=== PATIENT | male | born 1990 | race Hispanic/Latino ===

== ENCOUNTER 2018-03-23 21:13 | Emergency (ER) | payer SELFPAY ==
[~2018-03-23] VITALS: Ht 157.5 cm; Wt 87.5 kg
[2018-03-23] MEDS ORDERED: AZITHROMYCIN 250 MG TAB PO ONE (21:30)
[2018-03-23] MEDS ORDERED: CEFTRIAXONE SOD 1 GM VIAL IM ONE (21:30)
[2018-03-23] MEDS ORDERED: METRONIDAZOLE 500 MG TAB PO ONE (21:30)
[2018-03-23] MEDS ORDERED: CEFTRIAXONE SOD 250 MG VIAL ONE (21:49)
[2018-03-23 23:50] VITALS: BP 148/89
== END 2018-03-23 23:55 | disposition home or self-care (01) ==
LOC: ER 21:13
DX: N34.1 Nonspecific urethritis (principal); A60.01 Herpesviral infection of penis
CPT/HCPCS: 96372; 99282; J0696

== ENCOUNTER 2019-12-20 18:36 | Emergency (ER) | payer SELFPAY ==
[~2019-12-20] VITALS: Ht 157.5 cm; Wt 90.7 kg
--- OUTSIDE RECORDS SUMMARY | 2019-12-20 18:39 | XMS REPORT ---
Author Author Admin, Larry Bronx Organization Unknown Address Unknown Phone Unavailable PROBLEMS Condition Status Date Provider Notes Hemorrhoids, external active Sharan Lewis Anxiety active Valeriebrigette Casiano HIV exposure active Valerie Casiano Sore throat active Valerie Oh Body aches active Valerie Casiano Screening for diabetes mellitus active Sharan card Herpes labialis active Kamron Kat Screening for diabetes mellitus completed - 201 04/03/13 Sharan Lewis Herpes genitalis active Sergioasad Marquez history of, HSV 2 IgG antibody positive BMI 33.0-33.9 active Roger Alarconaniashley completed - Sharan Lewis Tinea pedis completed - Sharan Lewis Internal hemorrhoid active Matilde Mascorroabuikaycee Obesity active Matilde Harvey fe Screening visit for sexually trans dis active 0 Matilde Nevarez COUNSELING OTHER SEXUALLY TRANSMITTED DISEASES completed - Sharan Lewis ENCOUNTERS Date Type Provider Location Encounter Diagn osis - Ambulatory Encounter Janessa Lee [facility] Adult [facility] UNK - Ambulatory Encounter Sharan Lewis [facility] Adult Medicine UNK - Ambulatory Encounter Arian Cavazos [facility] UNK - Ambulatory Encounter Public Health Services Provider Arian Blake [facility] UNK - Ambulatory Encounter Valerie Fair [facility] Adult Medicine Body achesSore throatHIV exp osureAnxiety - Ambulatory Encounter Sharan Sullivan [facility] Adult Medicine Screening for diabetes mellitusHemorrhoi ds, external - Ambulatory Encounter Kolby Dudley [facility] Adult Medicine UNK - Ambulatory Encounter Lucy castillo MedAdherence Marie Diamond [facility] UNK - Ambulatory Encounter Melinda Dahl [facility] Adult Medicine UNK - [facility] - [facility] Encounter Sharan Lewis LinkLogharjit [facility] Adult Medicine UNK - Ambulatory Encounter Sharan Lewis [facility] Adult [facility] UNK - Ambulatory Encounter Sharan Singh [facility] Adult Medicine COUNSELING OTHER SEXUALLY TRANSMITTED DISEASESTinea pedisBalanitisScreening for diabetes mellitus - Ambulatory Encounter Naveen begum [facility] UNK - Ambulatory Encounter Kamron Kat [facility] UNK - Ambulatory Encounter Kamron Henriquez Roblero [facility] Herpes labialis - Ambulatory Encounter Kamron Kat [facility] UNK - Ambulatory Encounter Kamron solano [facility] UNK - Ambulatory Encounter Kamron solano [facility] UNK - Ambulatory Encounter Kamron solano [facility] UNK - Ambulatory Encounter Kamron solano [facility] UNK - Ambulatory Encounter Kamron Espinal [facility] UNK - Ambulatory Encounter Marie Belcher [facility] UNK - Ambulatory Encounter Marie caro [facility] UNK - Ambulatory Encounter Bessy Woods MedAdherence Desiree Hassan [facility] UNK - Ambulatory Encounter Sergio Alma Sergio Alma [facility] UNK - Ambulatory Encounter Roger Snow Sergio Alma Sergio Alma [facility] Screening for diabetes mellitus - Ambulatory Encounter Sergio Alma Sergio Alma [facility] UNK - Ambulatory Encounter Lucy castillo MedAdherence Jennifer Sims Sergio Alma Sergio Alma Dereck Belcher [facility] UNK - Ambulatory Encounter Lucy José Luis castillo MedAdherence Jennifer Short [facility] UNK - Ambulatory Encounter Sergio Alma Sergio Alma [facility] UNK - Ambulatory Encounter Sergio Alma Sergio Alma [facility] Herpes genitalis - Ambulatory Encounter Sergio Alma Sergio Alma [facility] UNK - Ambulatory Encounter Sergio Alma U amee Alma LinkLogic [facility] UNK - Ambulatory Encounter Sergio Alma Sergio Alma [facility] UNK - Ambulatory Encounter Sergio Alma Sergio Alma [facility] UNK - Ambulatory Encounter Sergio Alma Sergio Alma [facility] UNK - Ambulatory Encounter Roger Espinal [facility] Tinea pedisBalanitisBMI 33.0-33.9 - Ambulatory Encounter Matilde Dumont hristian Nnabuife Chukwuemejustin Scientologist Nnabuife [facility] UNK - Ambulatory Encounter Matilde Dumont hristian Nnabuife Óscarkwuemeka Scientologist Nnabuife [facility] UNK - Ambulatory Encounter Matilde Dumont hristian Nnabuife Óscarkwuemeka Scientologist Nnabuife [facility] UNK - Ambulatory Encounter Ginette Clayton Scientologist Nnabuife Óscarkwuemeka Scientologist Nnabuife [facility] Screening visit for sexually trans disOb esityInternal hemorrhoid - Ambulatory Encounter [facility] Desmello Negrete [facility] UNK - Ambulatory Encounter [facility] Provider Dorian Escoto [facility] UNK - Ambulatory Encounter Gordon jordan [facility] UNK - Ambulatory Encounter [facility] Provider Gordon Negrete [facility] COUNSELING OTH ER SEXUALLY TRANSMITTED DISEASES VITAL SIGNS Date Observation Value Provider oxygen saturation, oximetry 98 % Lea greg Fair " blood pressure, diastolic 89 mm[Hg] Chartiffanie Fair " blood pressure, systolic 137 mm[Hg] Chargreg Fair " respiratory rate E&M 18 /min Charese Per ry " pulse rate E&M 67 /min Charese Marv " temperature site oral John Proctorry " temperature E&M 98.1 [degF] Chargreg Marv " weight E&M 192.20 lbs. John Marv " weight in kilograms E&M 87.36 kg John Marv " method used to obtain blood pressure automatic John Marv " Blood Pressure Position 01 sitting Bharathi Fair " blood pressure, site #1 left arm John Fair " height E&M 65 [in_i] John Marv " height in centimeters E&M 165.10 cm Chartiffanie e Marv BP diastolic #1 84 mm[Hg] Sharan Lewis " BP systolic #1 146 mm[Hg] Sharan Gomezg " blood pressure, diastolic, second observation 68 mm[Hg] Sharan Lewis " blood pressure, systolic, second observation 115 mm[Hg] Sharan Lewis " oxygen saturation, oximetry 98 % Karlie a G Surugui " blood pressure, diastolic 68 mm[Hg] Sharan Lewis " blood pressure, systolic 115 mm[Hg] Sharan Lewis " pulse rate E&M 69 /min Janessa G Surugui " temperature E&M 98.3 [degF] Janessa G Surugui " weight E&M 191.25 lbs. Janessa G Surugui " weight in kilograms E&M 86.93 kg Janessa G Surugui " blood pressure, site #1 left arm Janessa G Surugui " Blood Pressure Position 01 sitting Janessa G Surugui " method used to obtain blood pressure automatic Janessa G Surugui " temperature site oral Janessa G Surugui " height E&M 65 [in_i] Jansesa G Surugui " height in centimeters E&M 165.10 cm Janessa Sullivan oxygen saturation, oximetry 99 % Triston lily Martinezs Marika " method used to obtain blood pressure automatic Francisco Matthewseras Marika " Blood Pressure Position 01 sitting Capri rdclemente MatthewsKaiser Marika " blood pressure, site #1 left arm Francisco Martinezs Marika " blood pressure, diastolic 80 mm[Hg] Leonar do Kaiser Marika " blood pressure, systolic 130 mm[Hg] Cesar o Kaiser Marika " pulse rate E&M 71 /min Francisco Contrer as Marika " temperature site oral Francisco Matthewse chad Marika " temperature E&M 98.1 [degF] Francisco Contrer as Marika " weight E&M 202.20 lbs. Francisco Contrer as Marika " weight in kilograms E&M 91.91 kg Francisco Kaiser Marika " height E&M 65 [in_i] Francisco Contrer as Marika " height in centimeters E&M 165.10 cm Leonar do Kaiser Marika oxygen saturation, oximetry 98 % Mike ia S Roblero " blood pressure, diastolic 76 mm[Hg] Indira S Roblero " blood pressure, systolic 132 mm[Hg] Indira S Roblero " respiratory rate E&M 18 /min Indira S Va ldez " pulse rate E&M 76 /min Indira S Roblero " temperature E&M 98.4 [degF] Indira S Roblero " temperature site oral Indira S Roblero " weight E&M 204.13 lbs. Indira S Roblero " weight in kilograms E&M 92.79 kg Indira S Roblero " height E&M 65 [in_i] Indira S Roblero " height in centimeters E&M 165.10 cm Indira S Roblero " blood pressure, site #1 left arm Indira S Roblero " Blood Pressure Position 01 sitting Nina a S Roblero " method used to obtain blood pressure automatic Indira S Roblero height E&M 65 [in_i] Kamron Kat " height in centimeters E&M 165.10 cm Maicol Kat oxygen saturation, oximetry 97 % Kavitha Espinal " method used to obtain blood pressure automatic Corazon Espinal " Blood Pressure Position 01 sitting Corazon Espinal " blood pressure, site #1 left arm Corazon Harpreet ramirez " blood pressure, diastolic 84 mm[Hg] Corazon Espinal " blood pressure, systolic 142 mm[Hg] Corazon rogers " respiratory rate E&M 17 /min Corazon Espinal " pulse rate E&M 70 /min Corazon Espinal " temperature site oral Corazon Espinal " temperature E&M 98.5 [degF] Corazon Epsinal " weight E&M 205 lbs. Corazon Espinal " weight in kilograms E&M 93.18 kg Corazon ramirez " height E&M 65 [in_i] Corazon Espinal " height in centimeters E&M 165.10 cm Corazon Espinal oxygen saturation, oximetry 98 % Epi Davidson " method used to obtain blood pressure automatic Michelle Davidson " Blood Pressure Position 01 sitting Kathrine Davidson " blood pressure, site #1 left arm Michelle J ack " blood pressure, diastolic 73 mm[Hg] Michelle Stuart " blood pressure, systolic 117 mm[Hg] Michelle Stuart " respiratory rate E&M 16 /min Michelle Stuart " pulse rate E&M 64 /min Michelle Stuart " temperature site oral Michelle Davidson " temperature E&M 97.9 [degF] Michelle Stuart " weight E&M 205 lbs. Michelle Davidson " weight in kilograms E&M 93.18 kg Michelle J ack " height E&M 65 [in_i] Michelle Davidson " height in centimeters E&M 165.10 cm Michellesarah Davidson oxygen saturation, oximetry 97 % Kavitha Espinal " method used to obtain blood pressure automatic Corazon Espinal " Blood Pressure Position 01 sitting Corazon Espinal " blood pressure, site #1 left arm Corazon ramirez " blood pressure, diastolic 87 mm[Hg] Corazon Espinal " blood pressure, systolic 137 mm[Hg] Corazon rogers " respiratory rate E&M 17 /min Corazon Espinal " pulse rate E&M 78 /min Corazon Espinal " temperature site oral Corazon Espinal " temperature E&M 98.7 [degF] Corazon Espinal " weight E&M 200.20 lbs. Corazon Espinal " weight in kilograms E&M 91 kg Corazon Harpreet ramirez " height E&M 65 [in_i] Corazon Espinal " height in centimeters E&M 165.10 cm Corazon Espinal oxygen saturation, oximetry 98 % Jess ukavin Yusuf " method used to obtain blood pressure automatic Rossana Yusuf " Blood Pressure Position 01 sitting Jaclashawn Yusuf " blood pressure, site #1 right arm Jacqueli ne Yusuf " blood pressure, diastolic 85 mm[Hg] Nikki line Yusuf " blood pressure, systolic 126 mm[Hg] Jacquel ine Yusuf " respiratory rate E&M 18 /min Rossana Yusuf " pulse rate E&M 99 /min Rossana River a " temperature site oral Rossana Hernandez ra " temperature E&M 98.4 [degF] Rossana River a " weight E&M 196 lbs. Rossana River a " weight in kilograms E&M 89.09 kg Jacqueli ne Yusuf " height E&M 65 [in_i] Rossana River a " height in centimeters E&M 165.10 cm Nikki line Yusuf Allergies No Known Allergy Information REASON FOR REFERRAL No Information Available RESULTS Date Observation Value Provider Reference Range Interpretati on Location HIV-CMIA (Chemiluminescent Microparticle Immuno Assay) Non Reactive LinkLogic Non Reactive " rapid plasma reagin antibody, serum Non Reactive [facility]Logic Non Reactive " hemoglobin A1C, blood, as % of total hemoglobin 5.5 % Li nkLogic 4.8-5.6 " Neisseria gonorrhoeae DNA probe Negative [facility] Negativ e " chlamydia DNA probe Negative [facility] Negative " alanine aminotransferase (SGPT), serum 62 1/L [facility] 0-44 High " aspartate aminotransferase (SGOT), serum 25 1/L [facility] 0-40 " alkaline phosphatase, serum 58 1/L [facility] 39-117 " bilirubin, serum, total 1.1 mg/dL [facility] 0.0-1.2 " albumin/globulin ratio, serum 2.2 [facility] 1.2-2.2 " globulin, serum 2.5 [facility]ic 1.5-4.5 " albumin, serum 5.4 g/dL [facility] 4.1-5.2 High " protein, total, serum 7.9 g/dL [facility] 6.0-8.5 " calcium, serum 9.9 mg/dL [facility] 8.7-10.2 " carbon dioxide, venous blood 25 mmol/L [facility]ic 20-29 " chloride, serum 101 mmol/L [facility]ic 96-106 " potassium, serum 4.0 mmol/L LinkLogic 3.5-5.2 " sodium, serum 142 mmol/L [facility] 134-144 " urea nitrogen/creatinine ratio, serum 14 LinkLogic 9 -20 " eGFR if 129 mL/min/((173/100).m2) LinkLogic >59 " Estimated Glomerular Filtration Rate (calc) 111 mL/min/((173/100).m2) LinkLogic >59 " creatinine, serum 0.94 mg/dL [facility] 0.76-1.27 " urea nitrogen, blood 13 mg/dL LinkLogic 6-20 " blood glucose, random 99 mg/dL LinkLogic 65-99 influenza B virus antigen negative John Fair " influenza virus A antigen negative [facility] Marv " Microbial identification kit, rapid strep method negative Tim Fair HIV rapid test results negative [facility]-CMIA (Chemiluminescent Microparticle Immuno Assay) Non Reactive LinkLogic Non Reactive " rapid plasma reagin antibody, serum Non Reactive LinkLogic Non Reactive " Neisseria gonorrhoeae DNA probe Negative LinkLogic Negativ e " chlamydia DNA probe Negative LinkLogic Negative hemoglobin A1C, blood, as % of total hemoglobin 5.9 % [facility] HIV-CMIA (Chemiluminescent Microparticle Immuno Assay) Non Reactive LinkLogic Non Reactive " rapid plasma reagin antibody, serum Non Reactive LinkLogic Non Reactive " Neisseria gonorrhoeae DNA probe Negative [facility]Logic Negativ e " chlamydia DNA probe Negative LinkLogic Negative " HERPES SIMPLEX VIRUS TYPE 1 AB.IGG (PT; SER; QN; ) <0. 91 index LinkLogic 0.00-0.90 rapid plasma reagin antibody, serum Non Reactive LinkL ogic Non Reactive HIV rapid test results negative Gordon Caden HISTORY OF IMMUNIZATIONS No Information Available HISTORY OF MEDICATION USE Medication Instructions Dates Provider Comments PRAMOSONE 1-1 % EXTERNAL CREAM Apply to rectal area 3 times daily for 7-14 days. Sharan Lewis ACYCLOVIR 400 MG ORAL TABLET 1 tablet by mouth three t imes a day for 10 days as needed for outbreak Kamron North ACYCLOVIR 400 MG ORAL TABLET 1 tablet by mouth three t imes a day for 10 days as needed for outbreak - Kamron Kat TERBINAFINE HCL 250 MG ORAL TABLET one tablet By Mouth daily for 2 weeks - Sergio Alma ACYCLOVIR 400 MG ORAL TABLET 1 tablet by mouth three times a day for 7 days - Sergio Alma ACYCLOVIR 400 MG ORAL TABLET 1 tablet by mouth three times a day for 7 days - Sergio Marquez DIBUCAINE 1 % RECTAL OINTMENT apply at night time daily - Sharan Lewis TERBINAFINE HCL 250 MG ORAL TABLET one tablet By Mouth daily for 2 weeks - Sergio Marquez CLOTRIMAZOLE 1 % EXTERNAL CREAM apply Twice a Day to affecte d areas for 7 days - Sergioasad Marquez SOCIAL HISTORY Date Observation Value Provider family support with undetectable HIV Mando Casiano " drug use, illicit Never Charese Marv " alcohol use Never Charese Marv " social history E&M . with u ndetectable HIV Not homeless. 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 Highest education level: 9th-12th grade. Sex at : Male. Sexual orientation: Heterosexual. Gender identity: Male. Gender of partner(s): Female. Age of first sexual intercourse: 17. Sexually Active: Yes. His is HIV+ Valerie Casiano " social history reviewed E&M reviewed today Lea greg Marv " sexual orientation Heterosexual Charese Marv " assessment of health literacy ([facility] 2014 [place], 3C10) Adequate Charese Marv " passive cigarette smoke exposure No Charese Marv " smoking status former smoker Charese Marv drug use, illicit Never Janessa G Surugu i " alcohol use Never Janessa Sullivan " social history E&M . Not homeless. 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 Highest education level: 9th-12th grade. Sex at : Male. Sexual orientation: Heterosexual. Gender identity: Male. Gender of partner(s): Female. Age of first sexual intercourse: 17. Sexually Active: Yes. Janessa Sullivan " social history reviewed E&M reviewed today Karlie Sullivan " assessment of health literacy ([facility], 3C10) Adequate Janessa Sullivan " sexual orientation Heterosexual Janessa Hewitt ui " passive cigarette smoke exposure No Janessa Sullivan " smoking status former smoker Janessa Sullivan " Exercise Program Referral T Janessa Sullivan " Weight Management Counseling Provided T Janessa Sullivan " Nutrition intervention T Janessa Henriquez urugulambert time of call 07/22/2019 1:21 PM Jeremy Diamond social history E&M . Not homeless. 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 Highest education level: 9th-12th grade. Sex at : Male. Sexual orientation: Heterosexual. Gender identity: Male. Gender of partner(s): Female. Age of first sexual intercourse: 17. Sexually Active: Yes. Francisco Kaiser Marika " Occupation #1 land scaping Francisco Contrer as Marika " patient considered to be homeless No Francisco Kaiser Marika " social history reviewed E&M reviewed today Triston ardo Kaiser Marika " drug use, illicit Never Francisco Contr eras Marika " alcohol use Never Francisco Contrer as Marika " sexual orientation Heterosexual Francisco Cont reras Marika " assessment of health literacy [facility]) Adequate Francisco Kaiser Marika " passive cigarette smoke exposure No Francisco Kaiser Marika " smoking status former smoker Francisco Contrer as Marika " Exercise Program Referral T Leonpoonam do Kaiser Marika " Weight Management Counseling Provided T Francisco Kaiser Marika " Nutrition intervention T Francisco Kaiser Marika drug use, illicit Never Indira S Valde z " alcohol use Never Indira S Roblero " social history reviewed E&M reviewed today Mike ia S Roblero " sexual orientation Heterosexual Indira S Vald ez " assessment of health literacy ([facility], 3C10) Adequate Indira S Roblero " passive cigarette smoke exposure No Indira S Roblero " smoking status former smoker Indira S Roblero drug use, illicit Never Corazon Espinal " alcohol use Never Corazon Espinal " social history reviewed E&M reviewed today Kavitha garcia Teddy " sexual orientation Heterosexual Corazon Espinal " assessment of health literacy ([facility], 3C10) Adequate Corazon Espinal " passive cigarette smoke exposure No Corazon Espinal " smoking status former smoker Corazon Espinal " Exercise Program Referral T Corazon Teddy " Weight Management Counseling Provided T Corazon Espinal " Nutrition intervention T Corazon Per ez time of call 12/21/2018 12:34 PM Kamilla Belcher time of call 12/17/2018 3:11 PM Moncho jordan drug use, illicit Never Michelle Stuart " alcohol use Never Michelle Stuart " social history reviewed E&M reviewed today Epi Davidson " sexual orientation Heterosexual Michelle Stuart " assessment of health literacy ([facility], 3C10) Adequate Michelle Stuart " passive cigarette smoke exposure No Michelle Stuart " smoking status former smoker Michelle Stuart " Exercise Program Referral T Michelle Stuart " Weight Management Counseling Provided T Michelle Stuart " Nutrition intervention T Michelle Ja gretchen time of call 08/02/2018 12:31 PM Dereck henriquez drug use, illicit Never Corazon Espinal " alcohol use Never Corazon Espinal " social history reviewed E&M reviewed today Kavitha garcia Teddy " sexual orientation Heterosexual Corazon Espinal " assessment of health literacy ([facility]10) Adequate Corazon Espinal " passive cigarette smoke exposure No Corazon Espinal " smoking status former smoker Corazon Espinal " Exercise Program Referral T Corazon Teddy " Weight Management Counseling Provided T Corazon Teddy " Nutrition intervention T Corazon Per ez Exercise Program Referral T Michelle Pattonuikaycee " Weight Management Counseling Provided T Matilde Mascorroabuife " Nutrition intervention T Taylor Kim Nnabuife " drug use, illicit Never Rossana grullon " alcohol use Never Rossana River a " social history reviewed E&M reviewed today Jess Yusuf " assessment of health literacy ([facility] [address] [place], 3C10) Adequate Rossana Yusuf " passive cigarette smoke exposure No Rossana Rogersa " smoking status former smoker Rossana Rogers a HIV behavioural goal 1 Condoms and Prep. Tree Negrete " intravenous drug use (IVDU) with needle sharing, hx of No Gordon Negrete " Site - PrEP on Sexual Risk Prophylaxis 1198 - LM C Gordon Negrete " Funding Source - PrEP on Sexual Risk Prophylaxis COH Gordon Negrete " high risk sexual behaviors No Sudeep Negrete " Have you ever received or given money for drugs or sex? No Gordon Negrete " sex at Male Gordon moreno " sexual orientation Heterosexual Gordon diallo " Gender that patient is attracted to Women Gordon Negrete " Gender of previous sexual partner(s) Women Gordon Negrete " Gender of current sexual partner(s) Women Gordon Negrete FUNCTIONAL STATUS No Information Available MENTAL STATUS Date Observation Value Provider assessment of judgment and insight E&M intact Valerie Casiano " mental status examination: orientation E &M oriented to time, place, and person Valerie Casiano " assessment of mood and affect E&M no depression, anxiety, or agitation Valerie Casiano " Generalized Anxiety Disorder Questionnaire - Que stion 2 1 John Fair " Generalized Anxiety Disorder Questionnaire - Que stion 1 1 John Fair Generalized Anxiety Disorder Questionnaire - Que stion 2 0 Francisco Kaiser Marika " Generalized Anxiety Disorder Questionnaire - Que stion 1 0 Francisco Kaiser Marika assessment of judgment and insight E&M intact Kamron Kat " mental status examination: orientation E &M oriented to time, place, and person Kamron Kat " assessment of mood and affect E&M no depression, anxiety, or agitation Kamron Kat " Generalized Anxiety Disorder Questionnaire - Que stion 2 0 Indira S Osbaldo " Generalized Anxiety Disorder Questionnaire - Que stion 1 0 Indira S Roblero assessment of judgment and insight E&M intact Kamron Kat " mental status examination: orientation E &M oriented to time, place, and person Kamron Kat " assessment of mood and affect E&M no depression, anxiety, or agitation Kamron Kat Generalized Anxiety Disorder Questionnaire - Que stion 2 0 Corazon Espinal " Generalized Anxiety Disorder Questionnaire - Que stion 1 0 Corazon Espinal assessment of judgment and insight E&M intact Sergio Alma " mental status examination: orientation E &M oriented to time, place, and person Sergio Alma " assessment of mood and affect E&M no depression, anxiety, or agitation Sergio Alma " Generalized Anxiety Disorder Questionnaire - Que stion 2 0 Michelle Davidson " Generalized Anxiety Disorder Questionnaire - Que stion 1 0 Michelle Davidson assessment of judgment and insight E&M intact Sergio Alma " mental status examination: orientation E &M oriented to time, place, and person Sergio Alma " assessment of mood and affect E&M no depression, anxiety, or agitation Sergio Alma " Generalized Anxiety Disorder Questionnaire - Que stion 2 0 Corazon Espinal " Generalized Anxiety Disorder Questionnaire - Que stion 1 0 Corazon Espinal assessment of judgment and insight E&M intact Ch[place]wu[place] Scientologist Nnabuife " mental status examination: orientation E &M oriented to time, place, and person Ch[place]wuem[place]a Scientologist Nnabuife " assessment of mood and affect E&M no depression, anxiety, or agitation Chukwuemeka Scientologist Nnabuife " Generalized Anxiety Disorder Questionnaire - Que stion 2 0 Rossana Yusuf " Generalized Anxiety Disorder Questionnaire - Que stion 1 0 Rossana Yusuf MEDICAL EQUIPMENT No Information Available FAMILY HISTORY No Information Available INSURANCE PROVIDERS Payer name Policy type / Coverage type Covered part y ID Sliding Fee - Cat 1 [employer] insurance [employer] [id number] ADVANCE DIRECTIVES No Information Available TREATMENT PLAN Date Name Hemoglobin A1c Comp. Metabolic Panel (14) RPR, Rfx Qn RPR/Confirm TP Chlamydia/GC Amplification ( Urine) HIV 1/2 ANTIGEN/ANTIBODY, FO URTH GENERATION W/RFL Chlamydia/GC Amplification ( Urine) RPR, Rfx Qn RPR/Confirm TP HIV 1/2 ANTIGEN/ANTIBODY, FO URTH GENERATION W/RFL HSV 1 and 2-Specific Ab, IgG with Reflex Chlamydia/GC Amplification RPR, Rfx Qn RPR/Confirm TP HIV 1/2 ANTIGEN/ANTIBODY, FO URTH GENERATION W/RFL RPR, Rfx Qn RPR/Confirm TP Est Patient Exp Problem - 99 213 Health Education/Supportive Counseling Est Patient Exp Problem - 99 213 Rapid Flu - In House Rapid Strep - In House Handling of specimen for tra nsfer Venipuncture Est Patient Problem Focus - 41784 Handling of specimen for tra nsfer Venipuncture Ofc Vst, Est Level III Ofc Vst, Est Level III HEMOGLOBIN A1C - In House Est Patient Exp Problem - 99 213 Est Patient Exp Problem - 99 213 New Patient Exp Problem - 99 202 Health Education/Supportive Counseling Health Education/Supportive Counseling HISTORY OF PROCEDURES Procedure Date Procedure Name Provider Procedure Notes Status Health Education/Supportive Counseling P ublic Health Services Provider completed Rapid Flu - In House Valerie clemens kvng Rapid Strep - In House Valerie navarro leted Venipuncture Sharan Lewis completed Venipuncture Sharan Lewis completed HEMOGLOBIN A1C - In House Roger Snow completed Health Education/Supportive Counseling P ublic Health Services Provider completed Health Education/Supportive Counseling P ublic Health Services Provider completed GOALS No Information Available HEALTH CONCERNS No Information Available
--- OUTSIDE RECORDS SUMMARY | 2019-12-20 18:39 | XMS REPORT ---
Author Author Admin, Larry Colfax Organization Unknown Address Unknown Phone Unavailable PROBLEMS Condition Status Date Provider Notes Herpes labialis active Kamron Kat Screening for diabetes mellitus completed - 201 04/03/13 Sharan Lewis Herpes genitalis active Sergio Alma history of, HSV 2 IgG antibody positive BMI 33.0-33.9 active Roger Whatley completed - Sharan Lewis Tinea pedis completed - Sharan Lewis Internal hemorrhoid active Matilde Kim Nnabuife Obesity active Matilde Kim Nnabui fe Screening visit for sexually trans dis active 0 Matilde Kim Nnabuikaycee COUNSELING OTHER SEXUALLY TRANSMITTED DISEASES completed - Sharan Lewis ENCOUNTERS Date Type Provider Location Encounter Diagn osis - Ambulatory Encounter Kolby Dudley [facility] Adult Medicine UNK - Ambulatory Encounter Lucy castillo MedAdherence Marie Diamond [facility] Services Contact Center UNK - Ambulatory Encounter Melinda Dahl [facility] [place] - Ambulatory Encounter Sharan Hairston [facility] Adult [facility] UNK - [facility] - [facility]ulatory Encounter Sharan Lewis [facility] Adult Medicine UNK - Ambulatory Encounter Sharan Hairston [facility] Adult Medicine COUNSELING OTHER SEXUALLY TRANSMITTED DISEASESTinea pedisBalanitisScreening for diabetes mellitus - Ambulatory Encounter Naveen Henriquez [facility] Practice UNK - Ambulatory Encounter Kamron Kat [facility] Practice UNK - Ambulatory Encounter Kamron Rbolero [facility] Herpes labialis - Ambulatory Encounter Kamron [place] [facility] UNK - Ambulatory Encounter Kamron solano [place] [facility] UNK - Ambulatory Encounter Kamron solano [place] [facility] Practice UNK - Ambulatory Encounter Kamron solano [place] [facility] UNK - Ambulatory Encounter Kamron Blankenshipiott [facility] UNK - Ambulatory Encounter Kamron Espinal [facility] UNK - Ambulatory Encounter Marie Belcher [facility] Services Contact Center UNK - Ambulatory Encounter Marie caro [facility] Services Contact Center UNK - Ambulatory Encounter Bessy Hassan [facility] Services Contact Center UNK - Ambulatory Encounter Sergio Alma Sergio Alma [facility] Practice UNK - Ambulatory Encounter Roger Snow Sergio Alma Sergio Alma Michelle Malone [facility] Screening for diabetes mellitus - Ambulatory Encounter Sergio Alma Sergio Alma [facility] UNK - Ambulatory Encounter Lucy Ordonez ips MedAdherence Jennifer Sims Sergio Alma Sergio Alma Dereck Belcher [facility] UNK - Ambulatory Encounter Lucy Ordonez ips MedAdherence Jennifer Short [facility] Practice UNK - Ambulatory Encounter Sergio Alma Sergio Alma [facility] Practice UNK - Ambulatory Encounter Sergio Alma Sergio Alma [facility] Practice Herpes genitalis - Ambulatory Encounter Sergio Alma Sergio Alma [facility] Practice UNK - Ambulatory Encounter Sergio Alma [facility]ulatory Encounter Sergio Alma Sergio Alma [facility] Practice UNK - Ambulatory Encounter Sergio Alma Sergio Alma [facility] Practice UNK - Ambulatory Encounter Sergio Alma Sergio Alma [facility] Practice UNK - Ambulatory Encounter Roger Espinal Sergio Alma Sergio Alma [facility] Practice Tinea pedisBalanitisBMI 33.0-33.9 - Ambulatory Encounter [facility] - [facility] Encounter Matilde Mascorroabuife [facility] UNK - Ambulatory Encounter Matilde Nevarez [facility] UNK - Ambulatory Encounter Ginette Douglasfaby ElaineRossanamigue Yusuf [place] Julio Nevarez [facility] Screening visit for sexually trans disOb esityInternal hemorrhoid - Ambulatory Encounter [facility] Desktop LinkLogic Gordon Negrete [facility] UNK - Ambulatory Encounter [facility] Services Provider Dorian Escoto [facility] UNK - Ambulatory Encounter Gordon jordan [facility] UNK - Ambulatory Encounter Public Health Services Provider Gordon Negrete [facility] COUNSELING OTH ER SEXUALLY TRANSMITTED DISEASES VITAL SIGNS Date Observation Value Provider oxygen saturation, oximetry 99 % Triston poonamdo Kaiser Marika " method used to obtain blood pressure automatic Francisco Kaiser Luna " Blood Pressure Position 01 sitting Capri rdo Kaiser Marika " blood pressure, site #1 left arm Francisco Kaiser Marika " blood pressure, diastolic 80 mm[Hg] Leonar do Kaiser Marika " blood pressure, systolic 130 mm[Hg] Cesar o Kaiser Marika " pulse rate E&M 71 /min Francisco Contrer as Marika " temperature site oral Francisco Contre chad Marika " temperature E&M 98.1 [degF] Francisco Contrer as Marika " weight E&M 202.20 lbs. Francisco Contrer as Marika " weight in kilograms E&M 91.91 kg Francisco Kaiser Marika " height E&M 65 [in_i] Francisco Contrer as Marika " height in centimeters E&M 165.10 cm Leonar do Kaiser Marika oxygen saturation, oximetry 98 % Mike Roblero " blood pressure, diastolic 76 mm[Hg] Indira S Roblero " blood pressure, systolic 132 mm[Hg] Indira S Roblero " respiratory rate E&M 18 /min Indira S Dionna spence " pulse rate E&M 76 /min Indira [...] arm Corazon ramirez " blood pressure, diastolic 84 mm[Hg] Corazon Espinal " blood pressure, systolic 142 mm[Hg] Corazon rogers " respiratory rate E&M 17 /min Corazon Espinal " pulse rate E&M 70 /min Corazon Espinal " temperature site oral Corazon Espinal " temperature E&M 98.5 [degF] Corazon Espinal " weight E&M 205 lbs. Corazon Espinal [...] blood pressure, site #1 left arm Michelle ortiz " blood pressure, diastolic 73 mm[Hg] Michelle Davidson " blood pressure, systolic 117 mm[Hg] Michelle Davidson " respiratory rate E&M 16 /min Michelle Jack " pulse rate E&M 64 /min Michelle Davidson " temperature site oral Michelle Davidson " temperature E&M 97.9 [degF] Michelle Davidson " weight E&M 205 lbs. Michelle Davidson " weight in kilograms E&M 93.18 kg Michelle Peterson ack " height E&M 65 [in_i] Michelle Davidson " height in centimeters E&M 165.10 cm Michelle Davidson oxygen saturation, oximetry 97 % Kavitha [...] Espinal " temperature E&M 98.7 [degF] Corazon Teddy " weight E&M 200.20 lbs. Corazon Teddy " weight in kilograms E&M 91 kg Corazon Harpreet brisenoz " height E&M 65 [in_i] Corazon Teddy " height in centimeters E&M 165.10 cm Corazon Espinal oxygen saturation, oximetry 98 % Jess ueline Yusuf " method used to obtain blood pressure automatic Rossana Yusuf " Blood Pressure Position 01 sitting Jacqu kavin Yusuf " blood pressure, site #1 right arm Jacqueli ne Yusuf " blood pressure, diastolic 85 mm[Hg] Nikki line Yusuf " blood pressure, systolic 126 mm[Hg] Jacquel ine Yusuf " respiratory rate E&M 18 /min Rossana Yusuf " pulse rate E&M 99 /min Rossana River a " temperature site oral Rossana Rive ra " temperature E&M 98.4 [degF] Rossana [...] as % of total hemoglobin 5.9 % Sergio Marquez HIV-CMIA (Chemiluminescent Microparticle Immuno Assay) Non Reactive [...] Reactive HIV rapid test results negative Gordon Negrete HISTORY OF IMMUNIZATIONS No Information Available HISTORY OF MEDICATION USE Medication Instructions Dates Provider Comments ACYCLOVIR 400 MG ORAL TABLET 1 tablet by mouth three t imes a day for 10 days as needed for outbreak Kamron Kat ACYCLOVIR 400 MG ORAL TABLET 1 tablet by mouth three t imes a day for 10 days as needed for outbreak - Kamron Kat TERBINAFINE HCL 250 MG ORAL TABLET one tablet By Mouth daily for 2 weeks - Sergio Marquez ACYCLOVIR 400 MG ORAL TABLET 1 tablet by mouth three times a day for 7 days - Sergio Marquez ACYCLOVIR 400 MG ORAL TABLET 1 tablet by mouth three times a day for 7 days - Sergio Marquez DIBUCAINE 1 % RECTAL OINTMENT apply at night time daily Sergio Marquez TERBINAFINE HCL 250 MG ORAL TABLET one tablet By Mouth daily for 2 weeks - Sergio Marquez CLOTRIMAZOLE 1 % EXTERNAL CREAM apply Twice a Day to affecte d areas for 7 days - Sergio Marquez SOCIAL HISTORY Date Observation Value Provider time of call 07/22/2019 1:21 PM Jeremy [...] social history reviewed E&M reviewed today Triston poonamdo Kaiser Marika " drug use, illicit Never Francisco Contr eras Marika " alcohol use Never Francisco Contrer as Marika " sexual orientation Heterosexual Francisco Cont reras Marika " assessment of health literacy ([facility], 3C10) Adequate Francisco Kaiser Marika " passive cigarette smoke exposure No Francisco Kaiser Marika " smoking status former smoker Francisco Contrer as Marika " Exercise Program Referral T Leonar do Kaiser Marika " Weight Management Counseling Provided T Francisco Kaiser Marika " Nutrition intervention T Francisco Kaiser Marika drug use, illicit Never Indira S Valde z " alcohol use Never Indira S Roblero " social history reviewed E&M reviewed today Mike ia S Roblero " sexual orientation Heterosexual Indira S Vald ez " assessment of health literacy ([facility], 3C10) Adequate Indira S Roblero " passive cigarette smoke exposure No Indira S Roblero " smoking status former smoker Indira S Roblero drug use, illicit Never Corazon Espinal " alcohol use Never Corazon Espinal " social history reviewed E&M reviewed today Kavitha Espinal " sexual orientation Heterosexual Corazon Espinal " assessment of health literacy ([facility], 3C10) Adequate Corazon Espinal " passive cigarette smoke exposure No Corazon Teddy " smoking status former smoker Corazon Espinal " Exercise Program Referral T Corazon Espinal " Weight Management Counseling Provided T Corazon Espinal " Nutrition intervention T Corazon moreno time of call 12/21/2018 12:34 PM Kamilla Belcher time of call 12/17/2018 3:11 PM Moncho jordan drug use, illicit Never Michelle Stuart " alcohol use Never Michelle Stuart " social history reviewed E&M reviewed today Epi Davidson " sexual orientation Heterosexual Michelle Davidson " assessment of health literacy ([facility], 3C10) Adequate Michelle Stuart " passive cigarette smoke exposure No Michelle Stuart " smoking status former smoker Michelle Davidson " Exercise Program Referral T Michelle Stuart " Weight Management Counseling Provided T Michelle Stuart " Nutrition intervention T Michelle Ja ck time of call 08/02/2018 12:31 PM Dereck henriquez drug use, illicit Never Corazon Teddy " alcohol use Never Corazon Teddy " social history reviewed E&M reviewed today Kavitha Espinal " sexual orientation Heterosexual Corazon Espinal " assessment of health literacy ([facility], 3C10) Adequate Corazon Teddy " passive cigarette smoke exposure No Corazon Teddy " smoking status former smoker Corazon Teddy " Exercise Program Referral T Corazon Teddy " Weight Management Counseling Provided T Corazon Teddy " Nutrition intervention T Corazon Per ez Exercise Program Referral T Michelle roman Confucianism Nnabuife " Weight Management Counseling Provided T [place] Confucianism Nnabuife " Nutrition intervention T [place] Confucianism Nnabuife " drug use, illicit Never Rossana Kai era " alcohol use Never Rossana River a " social history reviewed E&M reviewed today Jess ueline Yusuf " assessment of health literacy ([facility], 3C10) Adequate Rossana Yusuf " passive cigarette smoke exposure No Rossana Yusuf " smoking status former smoker Rossana River a HIV behavioural goal 1 Condoms and [...] " Gender of previous sexual partner(s) Women Gordondo Negrete " Gender of current sexual partner(s) Women Gordon Negrete FUNCTIONAL STATUS No Information Available MENTAL STATUS Date Observation Value Provider Generalized Anxiety Disorder Questionnaire - Que stion 2 0 Francisco Kaiser Marika " Generalized Anxiety Disorder Questionnaire - Que stion 1 0 Franciscolily Martinezs Marika assessment of judgment and insight E&M intact Kamron Kat " mental status examination: orientation E &M oriented to time, place, and person Kamron Kat " assessment of mood and affect E&M no depression, anxiety, or agitation Kamron Kat " Generalized Anxiety Disorder Questionnaire - Que stion 2 0 Indira Roblero " Generalized Anxiety Disorder Questionnaire - Que stion 1 0 Indira Roblero assessment of judgment and insight E&M [...] of judgment and insight E&M intact [place] Confucianism Nnabuife " mental status examination: orientation E &M oriented to time, place, and person [place] Confucianism Nnabuife " assessment of mood and affect E&M no depression, anxiety, or agitation Óscareveryaelmukund Julio Nevarez " Generalized Anxiety Disorder Questionnaire - Que stion 2 0 Rossana Yusuf " Generalized Anxiety Disorder Questionnaire - Que stion 1 0 Rossana Yusuf MEDICAL EQUIPMENT No Information Available FAMILY HISTORY No Information Available INSURANCE PROVIDERS Payer name Policy type / Coverage type Covered part y ID Sliding Fee - Cat 1 [employer] insurance [employer] [id number] ADVANCE DIRECTIVES No Information Available TREATMENT PLAN Date Name Chlamydia/GC Amplification ( Urine) RPR, Rfx Qn RPR/Confirm TP HIV 1/2 ANTIGEN/ANTIBODY, FO URTH GENERATION W/RFL HSV 1 and 2-Specific Ab, IgG with Reflex Chlamydia/GC Amplification RPR, Rfx Qn RPR/Confirm TP HIV 1/2 ANTIGEN/ANTIBODY, FO URTH GENERATION W/RFL RPR, Rfx Qn RPR/Confirm TP Est Patient Problem Focus - 60266 Handling of specimen for tra nsfer Venipuncture Ofc Vst, Est Level III Ofc Vst, Est Level III HEMOGLOBIN A1C - In House Est Patient Exp Problem - 99 213 Est Patient Exp Problem - 99 213 New Patient Exp Problem - 99 202 Health Education/Supportive Counseling Health Education/Supportive Counseling HISTORY OF PROCEDURES Procedure Date Procedure Name Provider Procedure Notes Status Venipuncture Sharan Lewis completed HEMOGLOBIN A1C - In House Roger Snow completed Health Education/Supportive Counseling P ublic Health Services Provider completed Health Education/Supportive Counseling P ublic Health Services Provider completed GOALS No Information Available HEALTH CONCERNS No Information Available
--- OUTSIDE RECORDS SUMMARY | 2019-12-20 18:39 | XMS REPORT ---
Author Author Yvette, Larry Duplicate Organization Unknown Address Unknown Phone Unavailable PROBLEMS Condition Status Date Provider Notes Herpes labialis active Kamron Kat Screening for diabetes mellitus completed - 201 04/03/13 Sharan Lewis Herpes genitalis active Sergioasad Vallesmi history of, HSV 2 IgG antibody positive [...] Location Encounter Diagn osis - Ambulatory Encounter Lucy castillo MedAdherolena Diamond [facility] Contact Center UNK - Ambulatory Encounter Melinda Dahl [facility] [place] [facility] [place] - Ambulatory Encounter Sharan Hairston [facility] UNK - Ambulatory [facility] UN[facility] - Ambulatory Encounter Sharan Lewis [facility] Adult Medicine UNK - Ambulatory Encounter Sharan Kaiser [facility] Adult Medicine COUNSELING OTHER SEXUALLY TRANSMITTED DISEASESTinea pedisBalanitisScreening for diabetes mellitus - Ambulatory Encounter Naveen Henriquez [facility] UNK - Ambulatory Encounter Kamron Kat [facility] UNK - Ambulatory Encounter Kamron Mckeontia Henriquez Roblero [facility] Herpes labialis - Ambulatory Encounter Kamron [place] [facility] UNK - Ambulatory Encounter Kamron solano [facility] UNK - Ambulatory Encounter Kamron Blankenshipiott [facility] UNK - Ambulatory Encounter Kamron [place] [facility] UNK - Ambulatory Encounter Kamron solano [facility] UNK - Ambulatory Encounter Kamron Espinal [facility] UNK - Ambulatory Encounter Marie Belcher [facility] Contact Center UNK - Ambulatory Encounter Marie caro [facility] Contact Center UNK - Ambulatory Encounter Bessy Hassan [facility] Contact Center UNK - Ambulatory Encounter Sergio Alma Sergio Alma [facility] UNK - Ambulatory Encounter Roger Snow Sergio Alma Sergio Almaanirudh Solisendez [facility] Screening for diabetes mellitus - Ambulatory Encounter Sergio Alma Sergio Alma [facility] UNK - Ambulatory Encounter Lucy castillo MedAdherolena Sims Sergio Alma Sergio Alma Dereck Yeager Kamillajose Tellez Belcher [facility] UNK - Ambulatory Encounter Lucy Ordonez ips MedAdherence Jennifer Sims [facility] UNK - Ambulatory Encounter Sergio Alma Sergio Alma [facility] UNK - Ambulatory Encounter Sergio Alma Sergio Alma [facility] Herpes genitalis - Ambulatory Encounter Sergio Alma Sergio Alma [facility] UNK - Ambulatory Encounter Sergio Alma U amee Alma LinkLogic [facility] UNK - Ambulatory Encounter Sergio Alma Sergio Alma [facility] UNK - Ambulatory Encounter Sergio Alma Segrio Alma [facility] UNK - Ambulatory Encounter Sergio Alma Sergio Alma [facility] UNK - Ambulatory Encounter Roger Espinal Sergio Alma Sergio Alma [facility] Tinea pedKauranitisBMI 33.0-33.9 - Ambulatory Encounter Matilde Dumont hrfranckian [place] Matilde Abarcaian N[place] [facility] UNK - Ambulatory Encounter Matilde Dumont hrjeannette Mascorroabuikaycee Abarcaian [place] [facility] UNK - Ambulatory Encounter Matilde Dumont kg Hugheswmukund Nevarez [facility] UNK - Ambulatory Encounter Ginette Douglasfaby ElaineRossanabird [facility] Screening visit for sexually trans disOb esityInternal hemorrhoid - Ambulatory Encounter [facility] Desktop LinkLogic Gordon Negrete [facility] UNK - Ambulatory Encounter [facility] Provider Dorian Escoto [facility] UNK - Ambulatory Encounter Gordon jordan [facility] UNK - Ambulatory Encounter [facility] Provider Gordon Negrete [facility] COUNSELING OTH ER SEXUALLY TRANSMITTED DISEASES VITAL SIGNS No Information Available Allergies No Known Allergy Information REASON FOR [...] % of total hemoglobin 5.9 % Sergio [facility] HIV-CMIA (Chemiluminescent Microparticle Immuno Assay) Non Reactive [...] reras Marika " assessment of health literacy ([facility] [address], 3C10) Adequate Francisco Kaiser Marika " passive cigarette smoke exposure No Francisco Kaiser Marika " smoking status former smoker Francisco Contrer as Marika " Exercise Program Referral Gianfranco George do Kaiser Marika " Weight Management Counseling Provided T Francisco Kaiser Marika " Nutrition intervention T Francisco Kaiser Marika drug use, illicit Never Indira S Valde z " alcohol use Never Indira S Roblero " social history reviewed E&M reviewed today Mike ia S Roblero " sexual orientation Heterosexual Indira S Vald ez " assessment of health literacy ([facility] [address], 3C10) Adequate Indira S Roblero " passive cigarette smoke exposure No Indira S Roblero " smoking status former smoker Indira S Roblero drug use, illicit Never Corazon Espinal " alcohol use Never Corazon Espinal " social history reviewed E&M reviewed today Kavitha Espinal " sexual orientation Heterosexual Corazon Teddy " assessment of health literacy ([facility] 2013 [address], 3C10) Adequate Corazon Espinal " passive cigarette smoke exposure No Corazon Espinal " smoking status former smoker Corazon Espinal " Exercise Program Referral T Corazon Espinal " Weight Management Counseling Provided T Corazon Espinal " Nutrition intervention T Corazon Proctor ez time of call 12/21/2018 12:34 PM Kamilla Belcher time of call 12/17/2018 3:11 PM Monchoemily Coronadoamalia jordan drug use, illicit Never Michelle Stuart " alcohol use Never Michelle Stuart " social history reviewed E&M reviewed today Epi Davidson " sexual orientation Heterosexual Michelle Stuart " assessment of health literacy ([facility] [address], 3C10) Adequate Michelle Stuart " passive cigarette [...] Corazon Espinal " assessment of health literacy ([facility] 2013 [address], 3C10) Adequate Corazon Espinal " passive cigarette smoke exposure No Corazon Espinal " smoking status former smoker Corazon Teddy " Exercise Program Referral T Corazon Espinal " Weight Management Counseling Provided T Corazon Espinal " Nutrition intervention T Corazon Per ez Exercise Program Referral T Michelle Nevarez " Weight Management Counseling Provided T Matilde Nevarez " Nutrition intervention T Taylor Nevarez " drug use, illicit Never Rossana grullon " alcohol use Never Rossana Rogers a " social history reviewed E&M reviewed today Jessalicia Yusuf " assessment of health literacy ([facility] 3C10) Adequate Rossanamigue Rogersa " passive cigarette smoke exposure No Rossana [...] Questionnaire - Que stion 2 0 Francisco Hairston " Generalized Anxiety Disorder Questionnaire - Que stion 1 0 Francisco Grigsbya assessment of judgment and insight E&M intact Kamron Kat " mental status examination: orientation E &M oriented to time, place, and person Kamron Kat " assessment of mood and affect E&M no depression, anxiety, or agitation Kamron Kat " Generalized Anxiety Disorder Questionnaire - Que stion 2 0 Indira Roblero " Generalized Anxiety Disorder Questionnaire - Que stion 1 0 Indira S Osbaldo assessment of judgment and insight E&M intact [...] Questionnaire - Que stion 2 0 Michelle Stuart " Generalized Anxiety Disorder Questionnaire - Que stion 1 0 Michellesarah Davidson assessment of judgment and insight E&M [...] of judgment and insight E&M intact [place] [facility] [place] " mental status examination: orientation E &M oriented to time, place, and person [place] [facility] [place] " assessment of mood and affect E&M no depression, anxiety, or agitation [place] [facility] [place] " Generalized Anxiety Disorder Questionnaire - Que stion 2 0 Rossana Yusuf " Generalized Anxiety Disorder Questionnaire - Que stion 1 0 Rossana Yusuf MEDICAL EQUIPMENT No Information Available FAMILY HISTORY No Information Available INSURANCE PROVIDERS Payer name Policy type / Coverage type Covered part y ID Sliding Fee - Cat 1 [employer] [id number] ADVANCE DIRECTIVES No Information Available TREATMENT PLAN Date Name Chlamydia/GC Amplification ( Urine) RPR, Rfx Qn RPR/Confirm TP HIV 1/2 ANTIGEN/ANTIBODY, FO URTH GENERATION W/RFL HSV 1 and 2-Specific Ab, IgG with Reflex Chlamydia/GC Amplification RPR, Rfx Qn RPR/Confirm TP HIV 1/2 ANTIGEN/ANTIBODY, FO URTH GENERATION W/RFL RPR, Rfx Qn RPR/Confirm TP Est Patient Problem Focus - 93772 Handling of specimen for tra nsfer Venipuncture [...] Roger Snow completed Health Education/Supportive Counseling [facility] Provider completed Health Education/Supportive Counseling [facility] Provider completed GOALS No Information Available HEALTH CONCERNS No Information Available
--- OUTSIDE RECORDS SUMMARY | 2019-12-20 18:39 | XMS REPORT ---
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5 Active Ginette Obregon MD Screening examination for venereal disea se Screening for diabetes mellitus ICD-V77.1 Inac tive Sharan Lewis [facility] Balanitis ICD-607.1 Inactive Sharan Lewis [facility] Tinea pedis ICD-110.4 Inactive Sharan west [facility] COUNSELING OTHER SEXUALLY TRANSMITTED DISEASES ICD-V65.45 Inactive Sharan Lewis [facility] Screening for diabetes mellitus V77.1 Resolved 2018 Sharan RUSSOP Screening for diabetes mellitus Balanitis 607.1 Resolved Sharan RUSSOP Balanoposthitis Tinea pedis 110.4 Resolved Sharan RUSSOP Dermatophytosis of foot COUNSELING OTHER SEXUALLY TRANSMITTED DISEASES V65.45 Resolved Sharan RUSSOP Counseling on other sexually transmitted diseases Medication List Medication Instructions Start Date Stop Date Generic Name NDC Status Provider Patient Instruction ACYCLOVIR 400 MG ORAL TABLET 1 tablet by mouth three t imes a day for 10 days as needed for outbreak ACYCLOVIR 82636805265 Active Polo Kat BENDER MACHINE-C Active DIBUCAINE 1 % RECTAL OINTMENT apply at night time daily DIBUCAINE 62626254090 Active Sergio Marquez MD R3 Active ACYCLOVIR 400 MG ORAL TABLET 1 tablet by mouth three t imes a day for 10 days as needed for outbreak ACYCLOVIR 400 MG ORAL TABLET 56949 1 ACYCLOVIR Inactive TERBINAFINE HCL 250 MG ORAL TABLET one tablet By Mouth daily for 2 weeks TERBINAFINE HCL 250 MG ORAL TABLET 711283 TERBIN AFINE HCL Inactive ACYCLOVIR 400 MG ORAL TABLET 1 tablet by mouth three times a day for 7 days ACYCLOVIR 400 MG ORAL TABLET 236111 ACYCLOVIR Inactive ACYCLOVIR 400 MG ORAL TABLET 1 tablet by mouth three times a day for 7 days ACYCLOVIR 400 MG ORAL TABLET 736753 ACYCLOVIR Inactive CLOTRIMAZOLE 1 % EXTERNAL CREAM apply Twice a Day to affecte d areas for 7 days CLOTRIMAZOLE 1 % EXTERNAL CREAM 026608 CLOTRIMAZ OLE Inactive TERBINAFINE HCL 250 MG ORAL TABLET one tablet By Mouth daily for 2 weeks TERBINAFINE HCL 250 MG ORAL TABLET 215382 TERBIN AFINE HCL Inactive ACYCLOVIR 400 MG ORAL TABLET 1 tablet by mouth three t imes a day for 10 days as needed for outbreak ACYCLOVIR 32649812903 No Longe r Active Kamron North BENDER MACHINE-C Active TERBINAFINE HCL 250 MG ORAL TABLET one tablet By Mouth daily for 2 weeks TERBINAFINE HCL 28000516374 No Longer Active Sergio Has amarjit COATS R3 Active ACYCLOVIR 400 MG ORAL TABLET 1 tablet by mouth three times a day for 7 days ACYCLOVIR 04302415203 No Longer Active Sergio Marquez MD R3 Active ACYCLOVIR 400 MG ORAL TABLET 1 tablet by mouth three times a day for 7 days ACYCLOVIR 06051967733 No Longer Active Lucy Jain llips MedAdherence PALLET SORTER Active CLOTRIMAZOLE 1 % EXTERNAL CREAM apply Twice a Day to affecte d areas for 7 days CLOTRIMAZOLE 07115952743 No Longer Active Sergio Marquez MD R3 Active TERBINAFINE HCL 250 MG ORAL TABLET one tablet By Mouth daily for 2 weeks TERBINAFINE HCL 67484499407 No Longer Active Sergio ocasio MD R3 Active Vital Signs Date Name Value Unit Range Description blood pressure, diastolic 80 mm[Hg] BP martinez blood pressure, systolic 130 mm[Hg] BP sys height E&M 65 [in_us] Bdy height pulse rate E&M 71 /min Heart rate temperature E&M 98.1 [degF] Body temp erature weight E&M 202.20 [lb_av] Weight Measure d blood pressure, diastolic 76 mm[Hg] BP martinez blood pressure, systolic 132 mm[Hg] BP sys height E&M 65 [in_us] Bdy height pulse rate E&M 76 /min Heart rate respiratory rate E&M 18 /min Resp rate temperature E&M 98.4 [degF] Body temp erature weight E&M 204.13 [lb_av] Weight Measure d height E&M 65 [in_us] Bdy height blood pressure, diastolic 84 mm[Hg] BP martinez blood pressure, systolic 142 mm[Hg] BP sys height E&M 65 [in_us] Bdy height pulse rate E&M 70 /min Heart rate respiratory rate E&M 17 /min Resp rate temperature E&M 98.5 [degF] Body temp erature weight E&M 205 [lb_av] Weight Measure d blood pressure, diastolic 73 mm[Hg] BP martinez blood pressure, systolic 117 mm[Hg] BP sys height E&M 65 [in_us] Bdy height pulse rate E&M 64 /min Heart rate respiratory rate E&M 16 /min Resp rate temperature E&M 97.9 [degF] Body temp erature weight E&M 205 [lb_av] Weight Measure d blood pressure, diastolic 87 mm[Hg] BP martinez blood pressure, systolic 137 mm[Hg] BP sys height E&M 65 [in_us] Bdy height pulse rate E&M 78 /min Heart rate respiratory rate E&M 17 /min Resp rate temperature E&M 98.7 [degF] Body temp erature weight E&M 200.20 [lb_av] Weight Measure d Diagnostic Results Date Name Value Unit Range Description Lab Report: Chlamydia/GC Amplification, RPR, Rfx Qn RPR/Confirm TP, Pane ... - Microbiology Neisseria gonorrhoeae DNA probe Negative Nega tive Lab Report: HSV 1 and 2-Spec Ab, IgG w/R fx, Chlamydia/GC Amplification, ... - Serology HERPES SIMPLEX VIRUS TYPE 1 AB.IGG (PT; SER; QN; ) <0. 91 index 0.00-0.90 Office Visit: Acute Visit rm 4 - Chemistry hemoglobin A1C, blood, as % of total hemoglobin 5.9 % Internal Other: Public Health: Community Testing - Chemistry HIV rapid test results negative Lab Report: Chlamydia/GC Amplification, RPR, Rfx Qn RPR/Confirm TP, Pane ... - Lab chlamydia DNA probe Negative Negative Lab Report: Chlamydia/GC Amplification, RPR, Rfx Qn RPR/Confirm TP, Pane ... - Serology rapid plasma reagin antibody, serum Non Reactive Non Reactive Encounters Date Encounter Provider Code Facility 16:47:12 CDT Est Patient Problem Focus - 63931 Sharan Lewis [facility] CPT-50630 [facility] Adult Medicine 14:16:12 CDT Ofc Vst, Est Level III Kamron Kat [facility] C CPT-68676 [facility] 14:20:15 CDT Ofc Vst, Est Level III [place] [facility]- C CPT-48553 [facility] 10:17:36 [employer] ATTENDANT Est Patient Exp Problem - 54015 Roger hayward MD CPT-09511 [facility] 16:52:13 [employer] ATTENDANT Est Patient Exp Problem - 67020 Sergio ocasio MD R3 CPT-11539 [facility] 09:32:04 CDT New Patient Exp Problem - 11599 Ellen Nevarez MD (res) CPT-26218 [facility] Procedures Code Procedure Name Date Entry Date Standard Desc ription CPT-01161 Handling of specimen for transfer 14:26:00 CDT CPT-60199 Venipuncture 14:25:58 CDT CPT-31518 HEMOGLOBIN A1C - In House 10:17:36 P[employer]ING [employer] ATTENDANT 2018 CPT-HE001 Health Education/Supportive Counseling 6 12:59:00 [employer] ATTENDANT CPT-HE001 Health Education/Supportive Counseling 6 12:10:05 P[employer]ING LOT ATTENDANT
--- OUTSIDE RECORDS SUMMARY | 2019-12-20 18:39 | XMS REPORT ---
Author Author Admin, Larry [place] Organization Unknown Address Unknown Phone Unavailable PROBLEMS Condition Status Date Provider Notes Anxiety active Valerie Casiano HIV exposure active Valerie Casiano Sore throat active Valerie Casiano Body aches active aVlerie Casiano Screening for diabetes mellitus active Sharan card Herpes labialis active Kamron Kat Screening for diabetes mellitus completed - 201 04/03/13 Sharan Lewis Herpes genitalis active Sergio [facility] history of, HSV 2 IgG antibody positive BMI 33.0-33.9 active Roger Whatley completed - Sharan Lewis Tinea pedis completed - Sharan Lewis Internal hemorrhoid active Matilde Mascorroabmary Obesity active Matilde Harvey fe Screening visit for sexually trans dis active 0 Matilde Nevarez COUNSELING OTHER SEXUALLY TRANSMITTED DISEASES completed - Sharan Lewis ENCOUNTERS Date Type Provider Location Encounter Diagn osis - [facility] Arian Staley [facility] UNK - Ambulatory Encounter Valerie Fair [facility] Adult Medicine Body achesSore throatHIV exp osureAnxiety - Ambulatory Encounter Sharan Gilmoreie Oh Valerie Oh Janessa Sullivan [facility] Adult Medicine Screening for diabetes mellitus - Ambulatory Encounter Kolby Ashford [facility] Adult Medicine UNK - [facility] - [facility] En[facility] Lucy castillo MedAdherence Marie Diamond [facility] UNK - Ambulatory Encounter Melindatia Dahl [facility] Adult Medicine UNK - [facility] UNK - Ambulatory Encounter Sharan Lewis [facility] Adult Medicine UNK - Ambulatory Encounter Sharan Singh [facility] Adult Medicine COUNSELING OTHER SEXUALLY TRANSMITTED DISEASESTinea pedisBalanitisScreening for diabetes mellitus - Ambulatory Encounter Naveen Henriquez [facility] UNK - Ambulatory Encounter Kamron Kat [facility] UNK - Ambulatory Encounter Kamron Roblero [facility] Practice Herpes labialis - Ambulatory Encounter Kamron Kat [facility] UNK - Ambulatory Encounter Kamron Kat [facility] UNK - Ambulatory Encounter Kamron Kat [facility] UNK - Ambulatory Encounter Kamron Blankenshipiott [facility] UNK - Ambulatory Encounter Kamron Kat [facility] UNK - Ambulatory Encounter Kamron Espinal [facility] UNK - Ambulatory Encounter Marie Mcdonnellnandini Belcher [facility] UNK - Ambulatory Encounter Marie Mcdanielnandini caro [facility] UNK - Ambulatory Encounter Bessy Woods MedJosafat Hassan [facility] UNK - Ambulatory Encounter Sergio Alma Sergio Amla [facility] UNK - Ambulatory Encounter Roger Snow Sergio Alma [facility] for [facility] mellitus - Ambulatory Encounter Sergio Alma Sergio Alma [facility] UNK - Ambulatory Encounter Lucy Ordonez ips MedAdherence Jennifer Sims Sergio Alma Sergio Alma Dereck Belcher [facility] UNK - Ambulatory Encounter Lucy Ordonez ips MedAdherence Jennifer Short [facility] UNK - Ambulatory Encounter Sergio Alma Serigo Alma [facility] UNK - Ambulatory Encounter Sergio Alma Sergio Alma [facility] Herpes genitalis - Ambulatory Encounter Sergio Alma Sergio Alma [facility] UNK - Ambulatory Encounter Sergio Alma U amee Alma LinkLogic [facility] UNK - Ambulatory Encounter Sergio Alma Sergio Alma [facility] UNK - Ambulatory Encounter Sergio Alma Sergio Alma [facility] UNK - Ambulatory Encounter Sergio Alma Sergio Alma [facility] UNK - Ambulatory Encounter Roger Espinal Sergio Alma Sergio Alma [facility] Tinea pedisBalanitisBMI 33.0-33.9 - Ambulatory Encounter Matilde Dumotn hristian Nnabuife Óscarkwmelbamejustin [facility] - [facility] Encounter Matilde Dumont hristian Nnabuife Óscarkwuemejustin Abarcaian [facility] - Ambulatory Encounter Matilde Dumont hristian Nnabuife Óscarkwuemejustin Kim Nnabuife [facility] UNK - Ambulatory Encounter Ginette Kim Nnabuikaycee Rizouemejustin [facility] Screening visit for sexually trans disOb esityInternal hemorrhoid - Ambulatory Encounter [facility] Desktop LinkLogic Gordon Negrete [facility] UNK - Ambulatory Encounter [facility] Provider Dorian Escoto [facility] UNK - Ambulatory Encounter Gordon jordan [facility] UNK - Ambulatory Encounter [facility] Provider Gordon Negrete [facility] COUNSELING OTH ER SEXUALLY TRANSMITTED DISEASES VITAL SIGNS Date Observation Value Provider oxygen saturation, oximetry 98 % Lea greg Fair " blood pressure, diastolic 89 mm[Hg] Margarita Fair " blood pressure, systolic 137 mm[Hg] John Fair " respiratory rate E&M 18 /min Chargreg Per ry " pulse rate E&M 67 /min John Marv " temperature site oral John Fair " temperature E&M 98.1 [degF] John Fair " weight E&M 192.20 lbs. John Fair " weight in kilograms E&M 87.36 kg John Fair " method used to obtain blood pressure automatic John Fair " Blood Pressure Position 01 sitting Bharathi Fair " blood pressure, site #1 left arm John Fair " height E&M 65 [in_i] John Fair " height in centimeters E&M 165.10 cm Margarita Proctorry BP diastolic #1 84 mm[Hg] Sharan Lewis " BP systolic #1 146 mm[Hg] Sharan Lewis " blood pressure, diastolic, second observation 68 mm[Hg] Sharan Lewis " blood pressure, systolic, second observation 115 mm[Hg] Sharan Joshua " oxygen saturation, oximetry 98 % Karlie jose Sullivan " blood pressure, diastolic 68 mm[Hg] Sharan Lewis " blood pressure, systolic 115 mm[Hg] Sharan Lewis " pulse rate E&M 69 /min Janessa Sullivan " temperature E&M 98.3 [degF] Janessagrant Ritteri " weight E&M 191.25 lbs. Janessa G Surleighai " weight in kilograms E&M 86.93 kg Janessa G Surleighai " blood pressure, site #1 left arm Janessa G Surleighai " Blood Pressure Position 01 sitting Janessa G Surugui " method used to obtain blood pressure automatic Janessa G Surugui " temperature site oral Janessa G Surleighai " height E&M 65 [in_i] Janessa G Surugui " height in centimeters E&M 165.10 cm Janessa G Riyai oxygen saturation, oximetry 99 % Triston Hairston " method used to obtain blood pressure automatic Francisco Matthewseras Marika " Blood Pressure Position 01 sitting [place] Marika " blood pressure, site [...] used to obtain blood pressure automatic Michelle Stuart " Blood Pressure Position 01 sitting Myesh a Stuart " blood pressure, site #1 left arm Michelle J ack " blood pressure, diastolic 73 mm[Hg] Michelle Stuart " blood pressure, systolic 117 mm[Hg] Michelle Stuart " respiratory rate E&M 16 /min Michelle Stuart " pulse rate E&M 64 /min Michelle Stuart " temperature site oral Michelle Davidson " temperature E&M 97.9 [degF] Michelle Stuart " weight E&M 205 lbs. Michelle Jack " weight in kilograms E&M 93.18 kg Michelle J ack " height E&M 65 [in_i] Michelle Jack " height in centimeters E&M 165.10 cm Michelle Stuart oxygen saturation, oximetry 97 % Kavitha Espinal [...] weight in kilograms E&M 91 kg Corazon ramirez " height E&M 65 [in_i] Corazon Espinal " height in centimeters E&M 165.10 cm Corazon Espinal oxygen saturation, oximetry 98 % Jess Yusuf " method used to obtain blood pressure automatic Rossana Yusuf " Blood Pressure Position 01 sitting Abigail Yusuf " blood pressure, site #1 right arm Too Yusuf " blood pressure, diastolic 85 mm[Hg] Nikki Yusuf " blood pressure, systolic 126 mm[Hg] Emilio Yusuf " respiratory rate E&M 18 /min Rossana Rogersa " pulse rate E&M 99 /min Rossana Rogers a " temperature site oral Rossana Hernandez ra " temperature E&M 98.4 [degF] Rossana Rogers a " weight E&M 196 lbs. Rossana garcia " weight in kilograms E&M 89.09 kg Too Yusuf " height E&M 65 [in_i] Rossana garcia " height in centimeters E&M 165.10 cm Nikki Yusuf Allergies No Known Allergy Information REASON FOR REFERRAL No Information Available RESULTS Date Observation Value Provider Reference Range Interpretati on Location influenza B virus antigen negative John Fair " influenza virus A antigen negative John Fair " Microbial identification kit, rapid strep method negative Tim Fair HIV rapid test results negative [facility]rian [facility] HIV-CMIA (Chemiluminescent Microparticle Immuno Assay) Non Reactive LinkLogic Non Reactive " rapid plasma reagin antibody, serum Non Reactive [employer]Logic Non Reactive " Neisseria gonorrhoeae DNA probe Negative LinkLogic Negativ e " chlamydia DNA probe Negative LinkLogic Negative hemoglobin A1C, blood, as % of total hemoglobin 5.9 % Sergio [facility] HIV-CMIA (Chemiluminescent Microparticle Immuno Assay) Non Reactive [...] By Mouth daily for 2 weeks - Sergioasad Marquez ACYCLOVIR 400 MG ORAL TABLET 1 [...] Marv " assessment of health literacy ([facility] 2013 [place], 3C10) Adequate Charese Marv " passive cigarette smoke exposure No Charese Marv " smoking status former smoker Charese Marv drug use, illicit Never Janessa G Surugu i " alcohol use Never Janessa G Surugui " social history E&M . Not homeless. 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 Highest education level: 9th-12th grade. Sex at : Male. Sexual orientation: Heterosexual. Gender identity: Male. Gender of partner(s): Female. Age of first sexual intercourse: 17. Sexually Active: Yes. Janessa Sullivan " social history reviewed E&M reviewed today Karlie Sullivan " assessment of health literacy ([facility] 2013 [facility], 3C10) Adequate Janessa Sullivan " sexual orientation [...] reras Marika " assessment of health literacy ([facility] 2013 [facility], 3C10) Adequate Francisco Kaiser Marika " passive [...] Vald ez " assessment of health literacy ([facility] 2013 [place], 3C10) Adequate Indira S Roblero " passive cigarette smoke exposure No Indira S Roblero " smoking status former smoker Indira S Roblero drug use, illicit Never Corazon Espinal " alcohol use Never Corazon Espinal " social history reviewed E&M reviewed today Kavitha garcia Teddy " sexual orientation Heterosexual Corazon Espinal " assessment of health literacy ([facility] 2013 andards, 3C10) Adequate Corazon Teddy " passive cigarette smoke exposure No Corazon Espinal " smoking status former smoker Corazon Espinal " Exercise Program Referral T Corazon Espinal " Weight Management Counseling Provided T Corazon Espinal " Nutrition intervention T Corazon Proctor ez time of call 12/21/2018 12:34 PM Kamilla Belcher time of call 12/17/2018 3:11 PM Moncho Donna z drug use, illicit Never Michelle Stuart " alcohol use Never Michelle Stuart " social history reviewed E&M reviewed today Epi Davidson " sexual orientation Heterosexual Michelle Stuart " assessment of health literacy ([facility] 2013 [place], 3C10) Adequate Michelle Stuart " [...] " assessment of health literacy ([facility] 2013 andards, 3C10) Adequate Corazon Espinal " passive cigarette smoke exposure No Corazon Espinal " smoking status former smoker Corazon Espinal " Exercise Program Referral T Corazon Espinal " Weight Management Counseling Provided T Corazon Espinal " Nutrition intervention T Corazon Proctor ez Exercise Program Referral T Michelle Abarcaian Nnabuife " Weight Management Counseling Provided T Ellenwmukund Abarcaian Nnabuife " Nutrition intervention T Óscarkwmelbame justin Jehovah'S Witness Nnabuife " drug use, illicit Never Rossana grullon " alcohol use Never Rossana Rogers a " social history reviewed E&M reviewed today Jessalicia Yusuf " assessment of health literacy ([facility]) Adequate Rossana Yusuf " passive cigarette smoke exposure No Rossana Yusuf " smoking status former smoker Rossana garcia HIV behavioural goal 1 Condoms and Prep. [...] Disorder Questionnaire - Que stion 2 0 Michellesarah Davidson " Generalized Anxiety Disorder Questionnaire - [...] of judgment and insight E&M intact [place] Jehovah'S Witness Nnabuife " mental status examination: orientation E &M oriented to time, place, and person [place] Jehovah'[employer] Witness Nnabuife " assessment of mood and affect E&M no depression, anxiety, or agitation [place] [employer]hovah'S Witness Nnabuife " Generalized Anxiety Disorder Questionnaire - Que stion 2 0 Rossana Yusuf " Generalized Anxiety Disorder Questionnaire - Que stion 1 0 Rossana Yusuf MEDICAL EQUIPMENT No Information Available FAMILY HISTORY No Information Available INSURANCE PROVIDERS Payer name Policy type / Coverage type Covered part y ID Sliding Fee - [employer] Bilna [id number] ADVANCE DIRECTIVES No Information Available TREATMENT PLAN [...] GENERATION W/RFL RPR, Rfx Qn RPR/Confirm TP Health Education/Supportive Counseling Est Patient Exp Problem - 99 213 Rapid Flu - In House Rapid Strep - In House Handling of specimen for tra nsfer Venipuncture Est Patient Problem Focus - 45951 Handling of specimen for tra nsfer Venipuncture [...] completed Rapid Flu - In House Valerie Casiano comple kvng Rapid Strep - In House Valerie Casiano comp leted Venipuncture Sharan Lewis completed Venipuncture Sharan Lewis completed HEMOGLOBIN A1C - In House Roger Snow completed Health Education/Supportive Counseling P ublic Health Services Provider completed Health Education/Supportive Counseling P ublic Health Services Provider completed GOALS No Information Available HEALTH CONCERNS No Information Available
--- OUTSIDE RECORDS SUMMARY | 2019-12-20 18:39 | XMS REPORT ---
Author Author Admin, Larry Emory Organization Unknown Address Unknown Phone Unavailable PROBLEMS Condition Status Date Provider Notes Anxiety active Valerie Oh HIV exposure active Valerie Oh Sore throat active Valerie Oh Body aches active Valerie Oh Screening for diabetes mellitus active Sharan card Herpes labialis active Kamron Kat Screening for diabetes mellitus completed - 201 04/03/13 Sharan Lewis Herpes genitalis active Sergio [facility] history of, HSV 2 IgG antibody positive [...] Diagn osis - Ambulatory Encounter Janessa Lee [facility] Adult Medicine UNK - Ambulatory Encounter Sharan Lewis [facility] Adult Medicine UNK - [facility] - [facility]ulatory [facility] Valerie Fair [facility] Body achesSore throatHIV exp osureAnxiety - Ambulatory Encounter Sharan Casiano Janessa G Riyai [facility] Adult Medicine Screening for diabetes mellitus - [facility] UNK - Ambulatory Encounter [facility] Adult Medicine UNK - Ambulatory Encounter Lucy Umanzornco [facility] UNK - Ambulatory Encounter Melinda Dahl [facility] UNK - [facility] UNK - Ambulatory Encounter Sharan Lewis [facility] Adult Medicine UNK - [facility] COUNSELING OTHER SEXUALLY TRANSMITTED DISEASESTinea pedisBalanitisScreening for diabetes mellitus - Ambulatory Encounter Naveen Henriquez [facility] UNK - Ambulatory Encounter Kamron Kat [facility] UNK - Ambulatory Encounter Kamron Roblero [facility] Herpes labialis - Ambulatory Encounter Kamron solano [facility] UNK - Ambulatory Encounter Kamron solano [facility] UNK - Ambulatory Encounter Kamron solano [facility] UNK - Ambulatory Encounter [facility] - [facility]ulatory Encounter Kamron solano [facility] UNK - Ambulatory Encounter Kamron Espinal [facility] UNK - Ambulatory Encounter Marie Belcher [facility] Center UNK - Ambulatory Encounter Marie caro [facility] UNK - Ambulatory Encounter Bessy Woods MedAdherence Desiree Hassan [facility] UNK - Ambulatory Encounter Sergio Alma Sergio Alma [facility] UNK - Ambulatory Encounter Roger Snow Sergio Alma Sergio Alma [facility] Screening for diabetes mellitus - Ambulatory Encounter Sergio Alma Sergio Alma [facility] UNK - Ambulatory Encounter Lucy Ordonez ips MedAdherence Jennifer Sims Sergio Alma Sergio Alma Dereck Belcher [facility] UNK - Ambulatory Encounter Lucy Ordonez ips MedAdherence Jennifer Sims [facility] UNK - Ambulatory Encounter Sergio Alma Sergio Alma [facility] UNK - Ambulatory Encounter Sergio Alma Sergio Alma [facility] Herpes genitalis - Ambulatory Encounter Sergio Alma Sergio Alma [facility] UNK - Ambulatory Encounter Sergio Alma [facility] am[facility] Alma [facility] UNK - Ambulatory Encounter Sergio Alma Sergio Alma [facility] UNK - Ambulatory Encounter Sergio Alma Sergio Alma [facility] UNK - Ambulatory Encounter Esrgio Alma Sergio Alma [facility] UNK - Ambulatory Encounter Roger Espinal Sergio Alma Sergio Alma [facility] Tinea pedisBalanitisBMI 33.0-33.9 - Ambulatory Encounter Matilde Dumont hristian Nnabuife Chukwuemejustin Hoahaoism Nnabuife [facility] UNK - Ambulatory Encounter Matilde Dumont hristian Nnabuife Óscarkwuemeka Hoahaoism [facility] UNK - Ambulatory Encounter Matilde Dumont hristian Nnabuife Óscarkwuemeka Hoahaoism [facility] [facility] UNK - Ambulatory Encounter Ginette Cantrellkmaremejustin Hoahaoism [place] Óscarkwuemeka Hoahaoism [facility] [facility] Screening visit for sexually trans disOb esityInternal hemorrhoid - Ambulatory Encounter [facility] Deskarieop Jane Staley [facility] UNK - Ambulatory Encounter [facility] Provider Dorian Escoto [facility] UNK - Ambulatory Encounter Gordon jordan [facility] UNK - Ambulatory Encounter [facility] Provider Gordon Negrete [facility] COUNSELING OTH ER SEXUALLY TRANSMITTED DISEASES VITAL SIGNS Date Observation Value Provider oxygen saturation, oximetry 98 % Lea greg Fair " blood pressure, diastolic 89 mm[Hg] Chartiffanie holland Marv " blood pressure, systolic 137 mm[Hg] John Marv " respiratory rate E&M 18 /min Charese Per ry " pulse rate E&M 67 /min Charese Marv " temperature site oral Chargreg Proctorry " temperature E&M 98.1 [degF] Chargreg Marv " weight E&M 192.20 lbs. John Marv " weight in kilograms E&M 87.36 kg John Marv " method used to obtain blood pressure automatic John Marv " Blood Pressure Position 01 sitting Bharathi Fair " blood pressure, site #1 left arm John Marv " height E&M 65 [in_i] Chargreg Marv " height in centimeters E&M 165.10 cm Margarita e Marv BP diastolic #1 84 mm[Hg] [...] G Surugui " height E&M 65 [in_i] Janessa G [facility] " height in centimeters E&M 165.10 cm Janessa Almanza [facility] oxygen saturation, oximetry 99 % Triston Matthewseras Marika " method used to obtain blood pressure automatic Francisco Kaiser Marika " Blood Pressure Position 01 sitting Mira Loma rdclemente MatthewsKaiser Marika " blood pressure, site #1 left arm Francisco Kaiser Marika " blood pressure, diastolic 80 mm[Hg] Leonar do Kaiser Marika " blood pressure, systolic 130 mm[Hg] Cesar o Kaiser Marika " pulse rate E&M 71 /min Francisco Contrer as Marika " temperature site oral Francisco Byrone chad Marika " temperature E&M 98.1 [degF] [...] S Roblero " weight E&M 204.13 lbs. Indiar S Roblero " weight in kilograms E&M [...] Stuart " weight E&M 205 lbs. Michelle Stuart " weight in kilograms E&M 93.18 kg Michelle J ack " height E&M 65 [in_i] Michelle Stuart " height in centimeters E&M 165.10 cm Michelle Stuart oxygen saturation, oximetry 97 % Kavitha Espinal " method used to obtain blood pressure automatic Corazon Espinal " Blood Pressure Position 01 sitting Corazon Espinal " blood pressure, site #1 left arm Corazon Harpreet ramirez " blood pressure, diastolic 87 mm[Hg] [...] brisenoz " height E&M 65 [in_i] Corazon Espinal " height in centimeters E&M 165.10 cm Corazon Teddy oxygen saturation, oximetry 98 % Jess tamera Yusuf " method used to obtain blood pressure automatic Rossana Yusuf " Blood Pressure Position 01 sitting Jaclashawn Yusuf " blood pressure, site #1 right arm Jaceusebiali ne Yusuf " blood pressure, diastolic 85 [...] " weight in kilograms E&M 89.09 kg Jaceusebiali ne Yusuf " height E&M 65 [in_i] Rossana River a " height in centimeters E&M 165.10 cm Nikki line Uysuf Allergies No Known Allergy Information REASON FOR [...] LinkLogic 65-99 influenza B virus [facility] Marv " influenza virus A antigen negative [facility] " Microbial identification kit, rapid strep method negative Tim Fair HIV rapid test results negative [facility] HIV-CMIA (Chemiluminescent Microparticle Immuno Assay) Non Reactive LinkLogic Non Reactive " rapid plasma reagin antibody, serum Non Reactive LinkLogic Non Reactive " Neisseria gonorrhoeae DNA probe Negative LinkLogic Negativ e " chlamydia DNA probe Negative LinkLogic Negative hemoglobin A1C, blood, as % of total hemoglobin 5.9 % [facility] HIV-CMIA (Chemiluminescent Microparticle Immuno Assay) Non [...] 3 times daily for 7-14 days. Sharan Gomezg ACYCLOVIR 400 MG ORAL TABLET 1 tablet [...] Marv " assessment of health literacy (NCQA PCM 2013 [place], 3C10) Adequate Charese Marv " [...] Karlie Sullivan " assessment of health literacy ([facility], 3C10) Adequate Janessa Cami Ritteri " sexual orientation Heterosexual Janessa Hewitt ui " passive cigarette smoke exposure No Janessa Sullivan " smoking status former smoker Janessa Sullivan " Exercise Program Referral T Janessa Sullivan " Weight Management Counseling Provided T Janessa Sullivan " Nutrition intervention T Janessa ma time of call 07/22/2019 1:21 PM Jeremy [...] reras Marika " assessment of health literacy ([facility], 3C10) Adequate Francisco Kaiser Marika " passive [...] Vald ez " assessment of health literacy ([facility], 3C10) Adequate Indira S Roblero " passive cigarette smoke exposure No Indira S Roblero " smoking status former smoker Indira S Roblero drug use, illicit Never Corazon Espinal " alcohol use Never Corazon Espinal " social history reviewed E&M reviewed today Kavitha garcia Teddy " sexual orientation Heterosexual Corazon Espinal " assessment of health literacy ([facility], 3C10) Adequate Corazon Espinal " passive [...] Michelle Stuart " assessment of health literacy ([facility], 3C10) Adequate Michelle Stuart " passive [...] Corazon Espinal " assessment of health literacy ([facility], 3C10) Adequate Corazon Espinal " passive cigarette smoke exposure No Corazon Espinal " smoking status former smoker Corazon Espinal " Exercise Program Referral T Corazon Teddy " Weight Management Counseling Provided T Corazon Espinal " Nutrition intervention T Corazon Per ez Exercise Program Referral T Michelle Mascorroabuikaycee " Weight Management Counseling Provided T Matilde Mascorroabuife " Nutrition intervention T Taylor Abarcaian Nnabuife " drug use, illicit Never Rossana grullon " alcohol use Never Rossana River a " social history reviewed E&M reviewed today Jess Yusuf " assessment of health literacy [facility] [address], 3C10) Adequate Rossanamigue Rogersa " passive cigarette [...] of judgment and insight E&M intact Chukwuemeka Hoahaoism Nnabuife " mental status examination: orientation E &M oriented to time, place, and person Chukwuem[place]a Hoahaoism Nnabuife " assessment of mood and affect E&M no depression, anxiety, or agitation Chukwuemeka Hoahaoism Nnabuife " Generalized Anxiety Disorder Questionnaire - Que stion 2 0 Rossana Yusuf " Generalized Anxiety Disorder Questionnaire - Que stion 1 0 Rossana Yusuf MEDICAL EQUIPMENT No Information Available FAMILY HISTORY No Information Available INSURANCE PROVIDERS Payer name Policy type / Coverage type Covered part y ID Sliding Fee - Cat 1 [employer] insurance [employer] [id number] ADVANCE DIRECTIVES No Information Available TREATMENT PLAN [...] nsfer Venipuncture Est Patient Problem Focus - 61017 Handling of specimen for tra nsfer Venipuncture [...] Procedure Notes Status Health Education/Supportive Counseling [facility] Health [facility] Provider completed Rapid Flu - In House Valerie clemens kvng Rapid Strep - In House Valerie navarro leted Venipuncture Sharan Lewis completed Venipuncture Sharan Lewis completed HEMOGLOBIN A1C - In House Roger Snow completed Health Education/Supportive Counseling [facility] Health Services Provider completed Health Education/Supportive Counseling [facility] Health [facility] Provider completed GOALS No Information Available HEALTH CONCERNS No Information Available
--- OUTSIDE RECORDS SUMMARY | 2019-12-20 18:39 | XMS REPORT ---
Author Author Admin, Larry [place] Organization Unknown Address Unknown Phone Unavailable PROBLEMS Condition Status Date Provider Notes Anxiety active Valerie Casiano HIV exposure active Valerie Casiano Sore throat active Valerie Casiano Body aches active Valerie Casiano Screening for diabetes mellitus active Sharan card Herpes labialis active Kamron Kat Screening for diabetes mellitus completed - 201 04/03/13 Sharan Lewis Herpes genitalis active Sergio [facility] history of, HSV 2 IgG antibody positive BMI 33.0-33.9 active Roger Whatley completed - Sharan Lewis Tinea pedis completed - Sharan Lewis Internal hemorrhoid active Matilde Mascorroabuikaycee Obesity active Matilde Harvey fe Screening visit for sexually trans dis active 0 Matilde Nevarez COUNSELING OTHER SEXUALLY TRANSMITTED DISEASES completed - Sharan Lewis ENCOUNTERS Date Type Provider Location Encounter Diagn osis - Ambulatory Encounter Sharan Lewis [facility] UNK - [facility] Provider Arian Staley [facility] UNK - Ambulatory Encounter Valerie Fair [facility] Body achesSore throatHIV exp osureAnxiety - Ambulatory Encounter Sharan Sullivan [facility] Adult Medicine Screening for diabetes mellitus - Ambulatory Encounter [facility] Adult Medicine UNK - Ambulatory Encounter [facility] Adult Medicine UNK - Ambulatory Encounter Lucy castillo MedAdherence Marie Umanzornco [facility] UNK - Ambulatory Encounter Melinda Dahl [facility] UNK - [facility] - Ambulatory Encounter Sharan Lewis [facility] Adult Medicine UNK - Ambulatory Encounter Sharan Singh [facility] Adult Medicine COUNSELING OTHER SEXUALLY TRANSMITTED DISEASESTinea pedisBalanitisScreening for diabetes mellitus - Ambulatory En[facility] Kamron Kat [facility] UNK - Ambulatory Encounter Kamron Roblero [facility] Herpes labialis - Ambulatory Encounter Kamron Kat [facility] UNK - Ambulatory Encounter Kamron Blankenshipiott [facility] UNK - Ambulatory Encounter Kamron solano [facility] Practice UNK - Ambulatory Encounter Kamron solano [facility] Practice UNK - Ambulatory Encounter Kamron solano [facility] UNK - Ambulatory Encounter Kamron Kat Corazon Espinal [facility] UNK - Ambulatory Encounter Marie Belcher [facility] Contact Center UNK - Ambulatory Encounter Marie Mcdanielnandini caro [facility] Contact Center UNK - Ambulatory Encounter Bessy Woods MedAdherence Desiree Hassan [facility] Contact Center UNK - Ambulatory Encounter Sergio Alma Sergio Alma [facility] UNK - Ambulatory Encounter Roger Snow Sergio Alma Sergio Alma Michelle Malone [facility] Screening for diabetes mellitus - Ambulatory Encounter Sergio Alma Sergio Alma [facility] UNK - Ambulatory Encounter Lucy castillo MedAdherence Jennifer Sims Sergio Alma Sergio Alma Dereck Belcher [facility] UNK - Ambulatory Encounter Lucy castillo MedAdherence Jennifer Short [facility] UNK - Ambulatory Encounter Sergio Alma Sergio Alma [facility] UNK - Ambulatory Encounter Sergio Alma Sergio Alma [facility] Herpes genitalis - Ambulatory Encounter Sergio Alma Sergio Alma [facility] UNK - Ambulatory Encounter Sergio Alma [facility] amee [facility] UNK - Ambulatory Encounter Sergio Alma Sergio Alma [facility] UNK - Ambulatory Encounter Sergio Alma Sergio Alma [facility] UNK - Ambulatory Encounter Sergio Alma Sergio Alma [facility] UNK - Ambulatory Encounter Roger Espinal Sergio Alma Sergio Alma [facility] Jailene SalasBMI 33.0-33.9 - Ambulatory Encounter Chueverwmukund Dumont hristian Nnabuife [place]wu[place]a Mormonism Nnabuife [facility] UNK - Ambulatory Encounter Chukwuemeka C hristian Nnabuife [place]wu[place] Mormonism Nnabuife [facility] UNK - Ambulatory Encounter Chukwuem[place]a C hristian Nnabuife [place]wu[place] Mormonism Nnabuife [facility] UNK - Ambulatory Encounter Ginette Cantrellkwuemejustin Mormonism Nnabuife [place]wuem[place] Mormonism Nnabuife [facility] Screening visit for sexually trans disOb esityInternal hemorrhoid - Ambulatory Encounter [facility] Desmello Negrete [facility] UNK - Ambulatory Encounter [facility] Provider Dorian Escoto [facility] UNK - Ambulatory Encounter Gordon jordan [facility] UNK - Ambulatory Encounter [facility] Provider Gordon Staley [facility] COUNSELING OT ER SEXUALLY TRANSMITTED DISEASES VITAL SIGNS Date Observation Value Provider oxygen saturation, oximetry 98 % Lea Fair " blood pressure, diastolic 89 mm[Hg] Margarita Fair " blood pressure, systolic 137 mm[Hg] John Fair " respiratory rate E&M 18 /min John Proctor ry " pulse rate E&M 67 /min [...] height in centimeters E&M 165.10 cm Margarita Fair BP diastolic #1 84 mm[Hg] Sharan Lewis [...] " pulse rate E&M 69 /min Janessa Ritteri " temperature E&M 98.3 [degF] Janessa G Surugui " weight E&M 191.25 lbs. Janessa G Surugui " weight in kilograms E&M 86.93 kg Janessa G Surugui " blood pressure, site #1 left arm Janessa G Surugui " Blood Pressure Position 01 sitting Janessa G Surugui " method used to obtain blood pressure automatic Janessa G Surugui " temperature site oral Ajnessa G Surugui " height E&M 65 [in_i] Janessa G Surugui " height in centimeters E&M 165.10 cm Janessa G Surugui oxygen saturation, oximetry 99 % Triston lily Kaiser Marika " method used to obtain blood pressure automatic Francisco Kaiser Marika " Blood Pressure Position 01 sitting Amanda [place] rdo Kaiser Marika " blood pressure, site #1 left arm Francisco Kaiser Marika " blood pressure, diastolic 80 mm[Hg] Leonar do Kaiser Marika " blood pressure, systolic 130 mm[Hg] Ecsar o Kaiser Marika " pulse rate E&M [...] " blood pressure, diastolic 73 mm[Hg] Michelle Jack " blood pressure, systolic 117 mm[Hg] Michelle Stuart " respiratory rate E&M 16 /min Michelle Jack " pulse rate E&M 64 /min Michelle Stuart " temperature site oral Michelle Davidson " temperature E&M 97.9 [degF] Michelle Jack " weight E&M 205 lbs. Michelle Davidson [...] Corazon Espinal oxygen saturation, oximetry 98 % Jessalicia Yusuf " method used to obtain blood [...] LinkLogic 65-99 influenza B virus antigen negative [facility] Marv " influenza virus A antigen negative [facility] " Microbial identification kit, rapid strep method negative Tim Fair HIV rapid test results negative Arian Blake HIV-CMIA (Chemiluminescent Microparticle Immuno Assay) Non Reactive LinkLogic Non Reactive " rapid plasma reagin antibody, serum Non Reactive LinkLogic Non Reactive " Neisseria gonorrhoeae DNA probe Negative LinkLogic Negativ e " chlamydia DNA probe Negative LinkLogic Negative hemoglobin A1C, blood, as % of total hemoglobin 5.9 % [facility] HIV-CMIA (Chemiluminescent Microparticle Immuno Assay) Non Reactive [...] times a day for 7 days - Sergioasad Vallesmi DIBUCAINE 1 % RECTAL OINTMENT apply at night time daily Sergio Marquez TERBINAFINE HCL 250 MG ORAL TABLET one tablet By Mouth daily for 2 weeks - Sergio Marquez CLOTRIMAZOLE 1 % EXTERNAL CREAM apply Twice a Day to affecte d areas for 7 days - Sergio Alma SOCIAL HISTORY Date Observation Value Provider family [...] Marv " assessment of health literacy ([facility]) Adequate Charese Marv " passive cigarette [...] Karlie Sullivan " assessment of health literacy ([facility], 3C10) Adequate Janessa Sullivan " sexual orientation Heterosexual Janessa Rizzoug ui " passive cigarette smoke exposure No [...] reras Marika " assessment of health literacy (MTQA [facility] 2013 [facility], 3C10) Adequate Francisco Kaiser Marika " passive [...] Vald ez " assessment of health literacy ([facility], 3C10) Adequate Indira S Roblero " passive cigarette smoke exposure No Indira S Roblero " smoking status former smoker Indira S Roblero drug use, illicit Never Corazon Espinal " alcohol use Never Corazon Espinal " social history reviewed E&M reviewed today Kavitha garcia Teddy " sexual orientation Heterosexual Corazon Espinal " assessment of health literacy ([facility], 3C10) Adequate Corazon Teddy " passive cigarette [...] Michelle Stuart " assessment of health literacy ([facility], 3C10) Adequate Michelle Stuart " passive cigarette [...] Corazon Espinal " assessment of health literacy ([facility], 3C10) Adequate Corazon Espinal " passive cigarette smoke exposure No Corazon Espinal " smoking status former smoker Corazon Espinal " Exercise Program Referral T Corazon Espinal " Weight Management Counseling Provided T Corazon Espinal " Nutrition intervention T Corazon Per ez Exercise Program Referral T Michelle Kim Nnabuife " Weight Management Counseling Provided T Matilde Kim Nnabuife " Nutrition intervention T Ellenwroberto Kim Nnabuife " drug use, illicit Never Rossana Kai era " alcohol use Never Rossana River a " social history reviewed E&M reviewed today Jess Yusuf " assessment of health literacy ([facility]) Adequate Rossana Yusuf " passive cigarette [...] Source - PrEP on Sexual Risk Prophylaxis [facility] Gordon Negrete " high risk sexual behaviors [...] - Que stion 2 0 Indira S Roblero " Generalized Anxiety Disorder Questionnaire - [...] of judgment and insight E&M intact [place] Mormonism Nnabuife " mental status examination: orientation E &M oriented to time, place, and person [place]wu[place] Mormonism Nnabuife " assessment of mood and affect E&M no depression, anxiety, or agitation [place]wu[place]a Mormonism Nnabuife " Generalized Anxiety Disorder Questionnaire - Que stion 2 0 Rossana Yusuf " Generalized Anxiety Disorder Questionnaire - Que stion 1 0 Rossana Yusuf MEDICAL EQUIPMENT No Information Available FAMILY HISTORY No Information Available INSURANCE PROVIDERS Payer name Policy type / Coverage type Covered part y ID Sliding Fee - Cat 1 [employer] [id number] ADVANCE DIRECTIVES No Information Available TREATMENT PLAN [...] nsfer Venipuncture Est Patient Problem Focus - 34090 Handling of specimen for tra nsfer Venipuncture [...] kvng Rapid Strep - In House Valerie Arroyoh comp leted Venipuncture Sharan Lewis completed Venipuncture Sharan Lewis completed HEMOGLOBIN A1C - In House Roger Snow completed Health Education/Supportive Counseling P ublic Health Services Provider completed Health Education/Supportive Counseling P ublic Health Services Provider completed GOALS No Information Available HEALTH CONCERNS No Information Available
--- OUTSIDE RECORDS SUMMARY | 2019-12-20 18:39 | XMS REPORT ---
Author Author Admin, Larry [place] Organization Unknown Address Unknown Phone Unavailable PROBLEMS Condition Status Date Provider Notes Hemorrhoids, external active Sharan Lewis Anxiety active Valeriebrigette Casiano HIV exposure active Valerie Casiano Sore throat active Valerie Oh Body aches active Valerie Casiano Screening for diabetes mellitus active Sharan card Herpes labialis active Kamron Kat Screening for diabetes mellitus completed - 201 04/03/13 Sharan Lewis Herpes genitalis active Sergio Marquez history of, HSV 2 IgG antibody [...] Diagn osis - Ambulatory Encounter Janessa Lee [facility] Adult Medicine UNK - Ambulatory Encounter Sharan Lewis [facility] Adult Medicine UNK - Ambulatory Encounter Arian Cavazos [facility] UNK - Ambulatory Encounter Public Health Services Provider Arian Blake [facility] Health UNK - Ambulatory Encounter Valerie Fair [facility] Adult Medicine Body achesSore throatHIV exp osureAnxiety - Ambulatory Encounter Sharan Sullivan [facility] Adult Medicine Screening for diabetes mellitusHemorrhoi ds, external - Ambulatory Encounter Kolby Dudley [facility] Adult Medicine UNK - Ambulatory Encounter Lucy castillo MedAdherence Marie Diamond [facility] UNK - Ambulatory Encounter Melinda Dahl [facility] Adult Medicine UNK - [facility] - [facility] Encounter Sharan Lewis LinkLogharjit [facility] Adult Medicine UNK - Ambulatory Encounter Sharan Lewis [facility] Adult Medicine UNK - Ambulatory Encounter Sharan Singh [facility] Adult Medicine COUNSELING OTHER SEXUALLY TRANSMITTED DISEASESTinea pedisBalanitisScreening for diabetes mellitus - Ambulatory Encounter Naveen begum [facility] UNK - Ambulatory Encounter Kamron Kat [facility] UNK - Ambulatory Encounter Kamron Henriquez Roblero [facility] Herpes labialis - Ambulatory Encounter Kamron Kat [facility] Practice UNK - Ambulatory Encounter Kamron solano [facility] UNK - Ambulatory Encounter Kamron solano [facility] UNK - Ambulatory Encounter Kamron solano [facility] UNK - Ambulatory Encounter Kamron solano [facility] UNK - Ambulatory Encounter Kamron Espinal [facility] UNK - Ambulatory Encounter Marie Belcher [facility] Contact Center UNK - Ambulatory Encounter Marie caro [facility] Contact Center UNK - Ambulatory Encounter Bessy Woods MedAdherence Desiree Hassan [facility] Contact Center UNK - Ambulatory Encounter Sergio Alma Sergio Alma [facility] UNK - Ambulatory Encounter Roger Snow Sergio Alma Sergio Alma Michelle Malone [facility] Screening for diabetes mellitus - Ambulatory Encounter Sergio Alma Sergio Alma [facility] Practice UNK - Ambulatory Encounter Lucy castillo MedAdherence Jennifer Sims Sergio Alma Sergio Alma Dereck Belcher [facility] UNK - Ambulatory Encounter Lucy José Luis castillo MedAdherence Jennifer Short [facility] UNK - Ambulatory Encounter Sergio Alma Sergio Alma [facility] UNK - Ambulatory Encounter Sergio Alma Sergio Alma [facility] Herpes genitalis - Ambulatory Encounter Sergio Alma Sergio Alma [facility] UNK - Ambulatory Encounter Sergio Alma U amee Alma LinkLogic [facility] UNK - Ambulatory Encounter Sergio Alma Sergio Alma [facility] UNK - Ambulatory Encounter Sergio Alma Sergio Alma [facility] UNK - Ambulatory Encounter Sergio Alma Sergio Alma [facility] UNK - Ambulatory Encounter Roger Espinal [facility] Tinea pedisBalanitisBMI 33.0-33.9 - Ambulatory Encounter Matilde Dumont hristian Nnabuife Chukwuemejustin Hindu Nnabuife [facility] UNK - Ambulatory Encounter Matilde Dumont hristian Nnabuife Óscarkwuemeka Hindu Nnabuife [facility] UNK - Ambulatory Encounter Matilde Dumont hristian Nnabuife Óscarkwuemeka Hindu Nnabuife [facility] UNK - Ambulatory Encounter Ginette Clayton Hindu Nnabuife Óscarkwuemeka Hindu Nnabuife [facility] Screening visit for sexually trans disOb esityInternal hemorrhoid - Ambulatory Encounter [facility] Desmello Negrete [facility] Health UNK - Ambulatory Encounter Public [facility] Services Provider Dorian Escoto [facility] Public Health Services UNK - Ambulatory Encounter Gordon jordan [facility] UNK - Ambulatory Encounter Public Health Services Provider Gordon Negrete [facility] COUNSELING OTH ER SEXUALLY TRANSMITTED DISEASES VITAL [...] " Blood Pressure Position 01 sitting Bharathi aFir " blood pressure, site #1 left arm [...] " height E&M 65 [in_i] Indira S Robleor " height in centimeters E&M 165.10 cm [...] Fair " influenza virus A antigen negative [facility] Marv " Microbial identification kit, rapid strep method negative Tim Fair HIV rapid test results negative [facility] HIV-CMIA (Chemiluminescent Microparticle Immuno Assay) Non Reactive LinkLogic Non Reactive " rapid plasma reagin antibody, serum Non Reactive LinkLogic Non Reactive " Neisseria gonorrhoeae DNA probe Negative LinkLogic Negativ e " chlamydia DNA probe Negative LinkLogic Negative hemoglobin A1C, blood, as % of total hemoglobin 5.9 % [facility] HIV-CMIA (Chemiluminescent Microparticle Immuno Assay) Non Reactive [...] Marv " assessment of health literacy (NCQA [facility] 2014 [place], 3C10) Adequate Charese Marv " [...] Karlie Sullivan " assessment of health literacy ([facility], 3C10) Adequate Janessa Sullivan " sexual [...] Marika " assessment of health literacy ([facility]) Adequate Francisco Kaiser Marika [...] ez " assessment of health literacy ([facility], 3C10) Adequate Indira S Roblero " passive cigarette smoke exposure No Indira S Roblero " smoking status former smoker Indira S Roblero drug use, illicit Never Corazon Espinal " alcohol use Never Corazon Espinal " social history reviewed E&M reviewed today Kavitha garcia Teddy " sexual orientation Heterosexual Corazon Espinal " assessment of health literacy ([facility], 3C10) Adequate Corazon Espinal " passive cigarette smoke exposure No Corazon Espinal " smoking status former smoker Corazon Espinal " Exercise Program Referral T Corazon Teddy " Weight Management Counseling Provided T Corazon Esipnal " Nutrition intervention T Corazon Per ez time of call 12/21/2018 12:34 PM Kamilla Belcher time of call 12/17/2018 3:11 PM Moncho jordan drug use, illicit Never Michelle Stuart " alcohol use Never Michelle Stuart " social history reviewed E&M reviewed today Epi Davidson " sexual orientation Heterosexual Michelle Stuart " assessment of health literacy ([facility], 3C10) Adequate Michelle Stuart " passive [...] Espinal " assessment of health literacy ([facility]) Adequate Corazon Espinal " passive cigarette smoke exposure No Corazon Espinal " smoking status former smoker Corazon Espinal " Exercise Program Referral T Corazon Tdedy " Weight Management Counseling Provided T Corazon [...] " assessment of health literacy ([facility] [place], 3C10) Adequate Rossana Yusuf [...] oriented to time, place, and person Sergio Alam " assessment of mood and affect E&M [...] of judgment and insight E&M intact [place] Hindu Nnabuife " mental status examination: orientation E &M oriented to time, place, and person [place] Hindu Nnabuife " assessment of mood and affect E&M no depression, anxiety, or agitation [place]wu[place] Hindu Nnabuife " Generalized Anxiety Disorder Questionnaire - Que stion 2 0 Rossana Yusuf " Generalized Anxiety Disorder Questionnaire - Que stion 1 0 Rossana Yusuf MEDICAL EQUIPMENT No Information Available FAMILY HISTORY No Information Available INSURANCE PROVIDERS Payer name Policy type / Coverage type Covered part y ID Sliding Fee - Cat 1 [employer] insurance [employer] [id number] ADVANCE DIRECTIVES No Information Available TREATMENT PLAN [...] nsfer Venipuncture Est Patient Problem Focus - 66667 Handling of specimen for tra nsfer Venipuncture [...]
--- OUTSIDE RECORDS SUMMARY | 2019-12-20 18:40 | XMS REPORT ---
Author Author Admin, Larry [place] Organization Unknown Address Unknown Phone Unavailable PROBLEMS Condition Status Date Provider Notes Hemorrhoids, external active Sharan Lewis Anxiety active Valeriebrigette Casiano HIV exposure active Valerie Casiano Sore throat active Valeriebrigette Casiano Body aches active Valerie Casiano Screening [...] Encounter Diagn osis - Ambulatory Encounter Lucy Perry [facility] Contact Center UNK - Ambulatory Encounter Janessa Lee [facility] Adult Medicine UNK - [facility] - [facility]ulatory Encounter Arian tobin [facility] UNK - Ambulatory Encounter [facility] Provider Arian Staley [facility] UNK - Ambulatory Encounter Valerie Fair [facility] [place] [facility] Body achesSore throatHIV exp osureAnxiety - Ambulatory Encounter Sharan Sullivan [facility] Adult Medicine Screening for diabetes mellitusHemorrhoi ds, external - Ambulatory Encounter Kolby Dudley [facility] Adult Medicine UNK - Ambulatory Encounter Lucy castillo [facility] Marie Diamond [facility] Contact [facility] UNK - Ambulatory Encounter Melinda Dahl [facility] UNK - [facility]ulatory Encounter Sharan Lewis LinkLogharjit [facility] Adult Medicine UNK - Ambulatory Encounter Sharan Lewis [facility] Adult Medicine UNK - Ambulatory Encounter Sharan Kaiser [facility] Adult Medicine COUNSELING OTHER SEXUALLY TRANSMITTED DISEASESTinea pedisBalanitisScreening for diabetes mellitus - Ambulatory Encounter [facility] UNK - Ambulatory Encounter [facility]ron [facility] UNK - Ambulatory Encounter Kamron Henriquez Roblero [facility] Herpes labialis - Ambulatory Encounter Kamron solano [facility] UNK - Ambulatory Encounter Kamron solano [facility] UNK - Ambulatory Encounter Kamron solano [facility] UNK - Ambulatory Encounter Kamron solano [facility] UNK - Ambulatory Encounter Kamron solano [facility] UNK - Ambulatory Encounter Kamron Espinal [facility] UNK - Ambulatory Encounter Marie Belcher [facility] Contact Center UNK - Ambulatory Encounter Marie Mcdanielnandini caro [facility] Contact [facility] UNK - Ambulatory Encounter Bessy Hassan [facility] Contact [facility] UNK - Ambulatory Encounter Sergio Alma Sergio Alma [facility] UNK - Ambulatory Encounter Roger Snow Sergio Alma [facility] for diabetes mellitus - Ambulatory Encounter Sergio Alma Sergio Alma [facility] UNK - Ambulatory Encounter Lucy castillo [facility] Jennifer Sims Sergio Alma Sergio Alma Dereck Belcher [facility] UNK - Ambulatory Encounter Lucy castillo [facility] Jennifer Sims [facility] UNK - Ambulatory Encounter Sergio Alma [facility] UNK - Ambulatory Encounter Sergio Alma S[facility] Herpes genitalis - Ambulatory Encounter Sergio Alma S[facility] UNK - Ambulatory En[facility] - [facility]ulatory Encounter Sergio Alma Sergio Al[facility] UNK - Ambulatory Encounter Sergio Alma S[facility] UNK - Ambulatory Encounter [facility] - [facility] Encounter Roger Espinal Sergio Alma [facility]ergio [facility] Tinea pedisBalanitisBMI 33.0-33.9 - Ambulatory Encounter Matilde Dumont hrfranckian Nnabuife [facility]ilde [facility] - Ambulatory Encounter Matilde Dumont hrfranckian Ludwinabuikaycee Mascorroabuife [facility] UNK - Ambulatory Encounter Matilde Dumont hristian [place]uife Matilde Abarcaian Nnabuife [facility] UNK - Ambulatory Encounter Ginette Mascorroabuikaycee [facility] Screening visit for sexually trans disOb esityInternal hemorrhoid - Ambulatory Encounter [facility] Gordon Negrete [facility] UNK - Ambulatory Encounter [facility] Provider Dorian Escoto [facility] UNK - Ambulatory Encounter Gordon jordan [facility] UNK - Ambulatory Encounter [facility] Provider Gordon Negrete [facility] COUNSELING OTH ER SEXUALLY TRANSMITTED DISEASES VITAL SIGNS Date Observation Value Provider oxygen saturation, oximetry 98 % Lea greg Marv " blood pressure, diastolic 89 mm[Hg] Chartiffanie amalia Proctorry " blood pressure, systolic 137 mm[Hg] Leagreg Fair " respiratory rate E&M 18 /min Chargreg Per ry " pulse rate E&M 67 /min Chargreg Marv " temperature site oral Chargreg Marv " temperature E&M 98.1 [degF] John Fair " weight E&M 192.20 lbs. John Fair " weight in kilograms E&M 87.36 kg John Fair " method used to obtain blood pressure automatic Leagreg Fair " Blood Pressure Position 01 sitting Bharathi Fair " blood pressure, site #1 left arm John Fair " height E&M 65 [in_i] John Fair " height in centimeters E&M 165.10 cm Leatiffanie holland Marv BP diastolic #1 84 mm[Hg] Sharan Lewis " BP systolic #1 146 mm[Hg] Sharan Lewis " blood pressure, diastolic, second observation 68 mm[Hg] Sharan Gomezg " blood pressure, systolic, second observation 115 mm[Hg] Sharan Lewis " oxygen saturation, oximetry 98 % Karlie a G Surugui " blood pressure, diastolic 68 mm[Hg] Sharan Lewis " blood pressure, systolic 115 mm[Hg] Sharan Gomezg " pulse rate E&M 69 /min Janessa G Surugui " temperature E&M 98.3 [degF] Janessa G Surugui " weight E&M 191.25 lbs. Janessa G Surugui " weight in kilograms E&M 86.93 kg Janessa G Surugui " blood pressure, site #1 left arm Janessa G Surugui " Blood Pressure Position 01 sitting Janessa G Surugui " method used to obtain blood pressure automatic Janessa Sullivan " temperature site oral Janessa Sullivan " height E&M 65 [in_i] Janessa Sullivan " height in centimeters E&M 165.10 cm Janessa Ritteri oxygen saturation, oximetry 99 % Triston Matthewseras [...] Blood Pressure Position 01 sitting Nina a Hillary Roblero " method used to obtain blood pressure automatic Indira Roblero height E&M 65 [in_i] Kamron Kat [...] Stuart " Blood Pressure Position 01 sitting Loreneesh a Stuart " blood pressure, site #1 left arm Michelle J ack " blood pressure, diastolic 73 mm[Hg] Michelle Stuart " blood pressure, systolic 117 mm[Hg] Michelle Stuart " respiratory rate E&M 16 /min Michelle Stuart " pulse rate E&M 64 /min Michelle Stuart " temperature site oral Michelle Stuart " temperature E&M 97.9 [degF] Michelle Stuart [...] [place] a " temperature site oral Rossanamigue Hernandez ra " temperature E&M 98.4 [degF] [...] as % of total hemoglobin 5.9 % [facility] HIV-CMIA (Chemiluminescent Microparticle Immuno Assay) Non [...] daily for 2 weeks - Sergioasad Marquez CLOTRIMAZOLE 1 % EXTERNAL CREAM apply Twice a Day to affecte d areas for 7 days - Sergioasad Vallesmi SOCIAL HISTORY Date Observation Value Provider time of call 10/17/2019 4:10 PM Neyda Perry family support with undetectable HIV Mando Casiano [...] Lea greg Marv " sexual orientation Heterosexual John Fair " assessment of health literacy ([facility], 3C10) Adequate Chargreg Marv " passive cigarette smoke exposure No Chargreg Marv " smoking status former smoker John Fair drug use, illicit Never Janessa Ritter i " alcohol use Never Janessa Ritteri " social history E&M . Not homeless. 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 Highest education level: 9th-12th grade. Sex at : Male. Sexual orientation: Heterosexual. Gender identity: Male. Gender of partner(s): Female. Age of first sexual intercourse: 17. Sexually Active: Yes. Janessa Sullivan " social history reviewed E&M reviewed today Karlie Sullivan " assessment of health literacy ([facility], 3C10) Adequate Janessa Ritteri " sexual orientation Heterosexual Janessa Rizzoug ui " passive cigarette smoke exposure No Janessa Ritteri " smoking status former smoker Janessa Sullivan [...] Marika " assessment of health literacy ([facility], 3C10) Adequate Francisco Kaiser Marika " passive cigarette smoke exposure No Francisco Kaiser Mairka " smoking status former smoker Francisco Contrer [...] ez " assessment of health literacy ([facility] [employer], 3C10) Adequate Indira S Roblero " passive cigarette smoke exposure No Indira S Roblero " smoking status former smoker Indira S Roblero drug use, illicit Never Corazon Espinal " alcohol use Never Corazon Espinal " social history reviewed E&M reviewed today Kavitha Espinal " sexual orientation Heterosexual Corazon Espinal " assessment of health literacy ([facility], 3C10) Adequate Corazon Espinal [...] social history reviewed E&M reviewed today Epi lobo Stuart " sexual orientation Heterosexual Michelle Stuart " assessment of health literacy ([facility] [address], 3C10) Adequate Michelle Stuart [...] Corazon Teddy " assessment of health literacy ([facility] [address], 3C10) Adequate Corazon Espinal " passive cigarette smoke exposure No Corazon Teddy " smoking status former smoker Corazon Espinal " Exercise Program Referral T Corazon Espinal " Weight Management Counseling Provided T Corazon Teddy " Nutrition intervention Gianfranco Proctor josh Exercise Program Referral T Michellejet owens Julio Nevarez " Weight Management Counseling Provided T Matilde Nevarez " Nutrition intervention T Taylor justin Julio Nevarez " drug use, illicit Never Rossana Kai era " alcohol use Never [place]ana River a " social history reviewed E&M reviewed today Jess tamera Rogersa " assessment of health literacy ([facility]) Adequate Rossana Yusuf " [...] " high risk sexual behaviors No Sudeep Negerte " Have you ever received or given [...] Questionnaire - Que stion 1 0 Corazon Teddy assessment of judgment and insight E&M intact [...] of judgment and insight E&M intact Ch[place]wu[place]a Mandaen Nnabuife " mental status examination: orientation E &M oriented to time, place, and person Chukwuem[place]a Mandaen Nnabuife " assessment of mood and affect E&M no depression, anxiety, or agitation Chukwuemeka Mandaen Nnabuife " Generalized Anxiety Disorder Questionnaire - Que stion 2 0 Rossana Yusuf " Generalized Anxiety Disorder Questionnaire - Que stion 1 0 Rossana Yusuf MEDICAL EQUIPMENT No Information Available FAMILY HISTORY No Information Available INSURANCE PROVIDERS Payer name Policy type / Coverage type Covered part y ID Sliding Fee - Cat 1 [employer] insurance [employer] [id number] ADVANCE DIRECTIVES No Information Available TREATMENT PLAN [...] nsfer Venipuncture Est Patient Problem Focus - 49840 Handling of specimen for tra nsfer Venipuncture [...]
--- NOTE | 2019-12-20 19:35 | Diagnostic Imaging Report ---
Exam: Left knee 3 views History: Knee pain Comparison: None. Findings: No fracture or malalignment. Joint spaces preserved. Bone island in the medial tibial plateau. Impression: No acute osseous abnormality. Signed by: Dr. Lobo Bello M.D. on 12/20/2019 7:32 PM
--- NOTE | 2019-12-20 19:47 | Emergency Department Note ---
History of Present Illnes History of Present Illness Chief Complaint: Extremity Trauma/Pain History of Present Illness This is a 29 year old male c cc pain left knee last week while playing soccer. Historian: Patient Onset (how long ago): week(s) (1) Location: left knee Quality: ga Radiation: non-radiation Severity: moderate Onset quality: sudden Duration (how long): week(s) (1) Timing of current episode: constant Progression: worsening Chronicity: new Context: trauma/injury (soccer) Relieving factors: none Exacerbating factors: none Associated symptoms: denies other symptoms Treatments prior to arrival: none Past Medical/Family History Physician Review I have reviewed the patient's past medical and family history. Any updates have been documented here. Past Medical History Past Medical History: None Past Surgical History: None Social History Smoking Cessation: Current every day smoker Counseling Performed: Yes Alcohol Use: Occasional Any Illegal Drug Use: No TB Exposure/Symptoms: No Physically hurt or threatened: No Other Any Pre-Existing Lines (PICC,: No Is patient up to date on immun: No Last Flu: NO Last Pneumovax: NO Review of Systems Review of Systems Constitutional: no symptoms EENTM: no symptoms Cardiovascular: no symptoms Respiratory: no symptoms Gastrointestinal: no symptoms Genitourinary: no symptoms Musculoskeletal: as per HPI Neurological: no symptoms Psychological: no symptoms Endocrine: no symptoms Hematological/Lymphatic: no symptoms Review of other systems All other systems reviewed and negative. Physical Exam Related Data Allergies: Coded Allergies: No Known Allergies (Unverified , 03/23/18) Vital signs reviewed: Yes Physical Exam CONSTITUTIONAL Constitutional: well-developed, well-nourished HENT HENT: normocephalic, atraumatic, oropharynx clear/moist, nose normal HENT L/R: left ext ear normal, right ext ear normal EYES Eyes: PERRL, conjunctivae normal NECK Neck: ROM normal PULMONARY Pulmonary: effort normal, breath sounds normal CARDIOVASCULAR Cardiovascular: regular rhythm, heart sounds normal, capillary refill normal, normal rate GASTROINTESTINAL Abdominal: soft, nontender, bowel sounds normal GENITOURINARY Genitourinary: exam deferred SKIN Skin: warm, dry MUSCULOSKELETAL Musculoskeletal: tenderness, swelling (left knee) NEUROLOGICAL Neurological: alert, oriented x 3, no gross motor or sensory deficits PSYCHOLOGICAL Psychological: mood/affect normal, judgement normal Results Imaging Imaging results reviewed: Yes Critical Care Time Subsequent provider I assumed direction of critical care for this patient from another provider of my specialty. Assessment & Plan Assessment & Plan Final Impression: (1) Contusion of left knee (2) Acute pain due to trauma Assessment & Plan iggy Borja Disposition: HOME, SELF-CARE KRISTIE TARIQ MD December 20, 2019 19:47
== END 2019-12-20 19:47 | disposition home or self-care (01) ==
LOC: FSED 18:36
DX: M25.562 Pain in left knee (principal); S80.02XA Contusion of left knee, initial encounter; Y93.66 Activity, soccer; Y92.322 Soccer field as the place of occurrence of the external cause; F17.210 Nicotine dependence, cigarettes, uncomplicated
CPT/HCPCS: 99283

== ENCOUNTER 2020-06-09 20:41 | Emergency (ER) | payer SELFPAY ==
[~2020-06-09] VITALS: Ht 157.5 cm; Wt 86.2 kg
[2020-06-09] MEDS ORDERED: KETOROLAC TROMETHAMINE 60 MG/2 ML VIAL IM ONE (21:30)
[2020-06-09] MEDS ORDERED: CEFTRIAXONE SOD 1 GM VIAL IM ONE (21:30)
[2020-06-09] MEDS ORDERED: ACETAMINOPHEN 325 MG TAB PO ONE (21:30)
--- NOTE | 2020-06-09 21:40 | Emergency Department Note ---
History of Present Illnes History of Present Illness Chief Complaint: fever, bodyaches, burning while urinating, left lbp History of Present Illness This is a 29 year old male. was doing well prior to this. Historian: Patient Arrival Mode: Car History limited by: condition of the patient (normal) Optometrist Assistant Required: No Onset (how long ago): hour(s) (13) Location: see above Quality: sharp Radiation: Reports non-radiation Severity: moderate Onset quality: gradual Duration (how long): week(s) (1) Timing of current episode: constant Progression: worsening Chronicity: new Context: Denies recent illness, Denies recent surgery, Denies recent immobilization, Denies recent travel, Denies trauma/injury, Denies new medications, Denies hx of DVT/PE, Denies non-compliance w/ medications Relieving factors: none Exacerbating factors: none Associated symptoms: Reports fever/chills, Reports malaise Treatments prior to arrival: none Past Medical/Family History Physician Review I have reviewed the patient's past medical and family history. Any updates have been documented here. Past Medical History Recent Fever: No Clinical Suspicion of Infectio: No New/Unexplained Change in Ment: No Past Medical History: None Past Surgical History: None Other Surgery: WRIST Social History Smoking Cessation: Never Smoker Counseling Performed: No Alcohol Use: Occasional Any Illegal Drug Use: No Physically hurt or threatened: No Other Last Tetanus: UNKNOWN Any Pre-Existing Lines (PICC,: No Review of Systems Review of Systems Constitutional: Reports as per HPI EENTM: Reports no symptoms Cardiovascular: Reports no symptoms Respiratory: Reports no symptoms Gastrointestinal: Reports no symptoms Genitourinary: Reports as per HPI Musculoskeletal: Reports as per HPI Integumentary: Reports no symptoms Neurological: Reports no symptoms Psychological: Reports no symptoms Endocrine: Reports no symptoms Hematological/Lymphatic: Reports no symptoms Review of other systems: All other systems negative Physical Exam Related Data Allergies: Coded Allergies: No Known Allergies (Unverified , 03/23/18) Triage Vital Signs Vital Signs Date Time Temp Pulse Resp B/P (MAP) Pulse Ox O2 Delivery O2 Flow Rate FiO2 06/09/20 21:05 102.2 105 18 137/78 99 Room Air Vital signs reviewed: Yes Physical Exam CONSTITUTIONAL Constitutional: Present well-developed, Present well-nourished HENT HENT: Present normocephalic, Present atraumatic, Present oropharynx clear/moist, Present nose normal HENT L/R: Present left ext ear normal, Present right ext ear normal EYES Eyes: Reports PERRL, Reports conjunctivae normal NECK Neck: Present ROM normal, Present supple PULMONARY Pulmonary: Present effort normal, Present breath sounds normal CARDIOVASCULAR Cardiovascular: Present regular rhythm, Present heart sounds normal, Present capillary refill normal, Present tachycardia GASTROINTESTINAL Abdominal: Present soft, Present nontender, Present bowel sounds normal GENITOURINARY Genitourinary: Present exam deferred SKIN Skin: Present warm, Present dry MUSCULOSKELETAL Musculoskeletal: Present ROM normal, Present other (left cva tenderness) NEUROLOGICAL Neurological: Present alert, Present oriented x 3, Present no gross motor or sensory deficits PSYCHOLOGICAL Psychological: Present mood/affect normal, Present judgement normal Results Laboratory Lab results reviewed: Yes Laboratory comments ua= +leuks, negative flu Assessment & Plan Medical Decision Making MDM pyelonephritis, flu, covid Reassessment Reassessment time: 21:55 Reassessment decreased pain s/p toradol Assessment & Plan Final Impression: (1) Pyelonephritis (2) Fever Depart Disposition: HOME, SELF-CARE Last Vital Signs Date Time Temp Pulse Resp B/P (MAP) Pulse Ox O2 Delivery O2 Flow Rate FiO2 06/09/20 21:05 102.2 105 18 137/78 99 Room Air Home Meds Active Scripts Prednisone (PREDNISONE) 20 Mg Tab, 60 MG PO DAILY, #15 TAB take all 3 20 mg pills at once Prov:AMADO ROMANO 06/09/20 Cefdinir (OMNICEF) 300 Mg Capsule, 300 MG PO Q12H, #20 CAP Prov:AMADO ROMANO 06/09/20 Azithromycin (AZITHROMYCIN) 500 Mg Tablet, 500 MG PO DAILY, #5 TAB Prov:AMADO ROMANO 06/09/20 Medications in the ED Ketorolac Tromethamine 60 mg ONCE ONCE IM ; Start 06/09/20 at 21:30; Stop 06/09/20 at 21:34; Status DC Ceftriaxone Sodium 1 gm ONCE ONCE IM ; Start 06/09/20 at 21:30; Stop 06/09/20 at 21:34; Status DC Acetaminophen 975 mg ONCE ONCE PO ; Start 06/09/20 at 21:30; Stop 06/09/20 at 21:34; Status DC AMADO ROMANO Jun 09, 2020 21:40
--- OUTSIDE RECORDS SUMMARY | 2020-06-09 21:42 | XMS REPORT | Continuity of Care Document ---
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 Name Role Phone NO, PCP PCP Unavailable Sharan Lewis Attphys Roger Snow Attphys Anson [facility],Neda Attphys Unavailabl e Mcdonnell Marie Attphys Unavailable Guadarrama M Brigitte Attphys Unavailable KOKEVIN TAREK Attphys Unavailable Yun [facility], Lucy Attphys [phone] Cami Perry Neyda Attphys Unavailable SuruguiCami Janessa Attphys Unavailable Chelsea Lee Attphys Unavailable Arian Blake Attphys Unavailable Provider, [facility] Attphys Valerie Segal Attphys John Fair Attphys Unavailable Dudley, Dejon Kolby Attphys Unavailable Ni Singh Attphys Unavailable Jeremy Diamond Attphys Unavailable Melinda Dahl Attphys Unavailable Francisco Kahn Attphys Unavailable Naveen Key Attphys Unavailable Kamron Kat Attphys Hillary Robleroia Attphys Unavailable Corazon Espinal Attphys Unavailable Kamilla Meehan Attphys Unavailable Moncho Maravilla Attphys Unavailable Chuck [facility]herence, Bessy Attphys Unavailable Desiree Hassan Attphys Unavailable Alma, Sergio Attphys Unavailable Michelle Davidson Attphys Unavailable Kira Titus Attphys Unavailable Jennifer Sims Attphys Unavailable Dereck Yeager Attphys Unavailable Matilde Nevarez Attphys Unavail able Douglasfaby Ginette Attphys Rossana Yusuf Attphys Unavailable Desktop, [facility] Attphys Unavail able Gordon Negrete Attphys Unavailable Dorian Escoto Attphys Unavailable OhDevin del angelValerie Unavailable Sharan Lewis Unavailable Kamron Kat Unavailable Alma, Sergio Unavailable Unavailable Roger Snow Unavailable Roque, Óscarelise Lutheran Unavailable Unavail able Payers Payer Name Policy Type Policy Number Effective Date Expiration Date S ource Sliding Fee - Cat 1 CI [id number] 2018 00:00:00 2019-02 00:00:00 [facility] Problems Condition Name Condition Details Condition Category Status Onset Date Resolution Date Last Treatment Date Treating Clinician Comments Source Anxiety Condition Active 2019-08-19 00:00:00 2019-08[facility] Condition Active 2019-08-19 00:00:00 08[facility]19 [facility] Sore throat Condition Active 2019-08-19 00:00:00 08-19 10:46:[facility] Body aches Condition Active 2019-08-19 00:00:00 2019-07 10:46:08 [facility] Hemorrhoids, external Condition Active 2019-08-18 00:00:0 0 2019-09-05 08:23:14 Sharan Lewis [facility] Screening for diabetes mellitus Condition Active 00:00:00 2019-09-05 08:19:17 Sharan Lewis [facility] Herpes labialis Condition Active 2019-01-17 00:00:00 20 14-03-13 16:28:15 Kamron Kat [facility] Herpes genitalis Condition Active 2018-07-05 00:00:00 2 16:44:28 Alma, Sergio history of, HSV 2 IgG antibody positive [facility] BMI 33.0-33.9 Condition Active 2018-06-02 00:00:00 2018 12:29:36 Roger Snow [facility] Obesity Condition Active 2018-04-06 00:00:00 2018-04-10 17:09:21 [facility] Internal hemorrhoid Condition Active 2018-04-05 00:00:00 2018-04-10 17:09:21 [facility] Screening visit for sexually trans dis Condition Active 2 00:00:00 2019-09-05 08:19:17 [facility] Acute pain due to trauma Problem Active [facility] Contusion of left knee Problem Active [facility] History of Past Illness Condition Name Condition Details Condition Category Status Onset Date Resolution Date Last Treatment Date Treating Clinician Comments Source Screening for diabetes mellitus Condition Inactive 2018 00:00:00 2019-03-08 00:00:00 2019-03-08 16:47:18 [facility] Balanitis Condition Inactive 2018-06-01 00:00:00 2019-03-08 00:00:00 2019-03-08 16:47:18 [facility] Tinea pedis Condition Inactive 2018-06-01 00:00:00 00:00:00 2019-03-08 16:47:18 [facility] COUNSELING OTHER SEXUALLY TRANSMITTED DISEASES Conditi on Inactive 2017-07-01 00:00:00 2019-03-08 00:00:00 2019-03-08 16:47:18 [facility] Allergies, Adverse Reactions, Alerts This patient has no known allergies or adverse reactions. Social History Social Habit Start Date Stop Date Quantity Comments Source time of call 2019-12-21 10:47:34 2019-12-21 10:47:34 12/21/2019 10:48 AM [facility] sexual orientation 2019-08-19 10:17:43 2019-08-19 10:17:43 Heterosexu al [facility] drug use, illicit 2019-08-19 10:17:43 2019-08-19 10:17:43 Never [facility] alcohol use 2019-08-19 10:17:43 2019-08-19 10:17:43 Never [facility] social history reviewed E&M 2019-08-19 10:17:43 2019-08-19 10:17 :43 reviewed today [facility] assessment of health literacy ([facility] 2014 Standard s, 3C10) 2019-08-19 10:17:43 2019-08-19 10:17:43 Adequate [facility] passive cigarette smoke exposure 2019-08-19 10:17:43 2019-08-19 10:17 :43 No [facility] social history E&M 2019-08-19 10:17:43 2019-08-19 10:17:43 Marri ed. with undetectable HIVNot homeless. Employed full-time. [employer]. Highest education level: 9th-12th grade. Sex at : Male. Sexual orientation: Heterosexual. Gender identity: Male. Gender of partner(s): Female. Age of first sexual intercourse: 17. Sexually Active: Yes. His is HIV+ [facility] family support 2019-08-19 10:17:43 2019-08-19 10:17:43 wit h undetectable HIV [facility] Occupation #1 2019-03-03 14:00:17 2019-03-03 14:00:17 [facility] patient considered to be homeless 2019-03-03 14:00:17 2019-03-03 14:0 0:17 No [facility] HIV behavioural goal 1 2017-07-01 12:04:20 2017-07-01 12:04:20 [facility] [employer]. [facility] intravenous drug use (IVDU) with needle sharing, hx of 07-01 12:04:20 2017-07-01 12:04:20 No [facility] Site - PrEP on Sexual Risk Prophylaxis 2017-07-01 12:04:20 07-01 12:04:[address] [place] [address] Funding Source - PrEP on Sexual Risk Prophylaxis 2017-07-01 12:04:20 2017-07-01 12:04:20 [facility] high risk sexual behaviors 2017-07-01 12:04:20 2017-07-01 12:04:20 No [facility] Have you ever received or given money for drugs or sex? 2016 12:04:20 2017-07-01 12:04:20 No [facility] sex at 2017-07-01 12:04:20 2017-07-01 12:04:20 Male [facility] Gender that patient is attracted to 2017-07-01 12:04:20 12:04:20 Women [facility] Gender of previous sexual partner(s) 2017-07-01 12:04:20 2017-06 12:04:20 Women [facility] Gender of current sexual partner(s) 2017-07-01 12:04:20 12:04:20 Women [facility] Sex Assigned At 1990 00:00:00 1990 00:00:00 Male [facility] Smoking Status Start Date Stop Date Source Ex-smoker (finding) 2019-08-19 10:17:43 2019-08-19 10:17:43 [facility] Medications Ordered Medication Name Filled Medication Name Start Date Stop Da te Current Medication? Ordering Clinician Indication Dosage Frequency Signature (SIG) Comments Components Source PRAMOSONE (PRAMOXINE-HC) 1-1 % CREA 2019-08-18 00:00:00 Yes Sharan Lewis Apply to rectal area 3 times daily for 7 -14 days. [facility] (ACYCLOVIR) 400 MG TABS 2019-01-17 00:00:00 Yes Roger hayward 1 tablet by mouth three times a day for 10 days as needed for outbreak. [facility] (ACYCLOVIR) 400 MG TABS 2018-12-22 00:00:00 2019-01-01 00: 00:00 No Kamron Kat 1 tablet by mout h three times a day for 10 days as needed for outbreak [facility] (TERBINAFINE HCL) 250 MG TABS 2018-08-12 00:00:00 00:00:00 No Roger Snow 1{Tablet} 1xD one tablet By Mouth daily for 2 weeks [facility] (ACYCLOVIR) 400 MG TABS 2018-08-02 00:00:00 2018-08-09 00: 00:00 No Rogerjeff Straussberg 1{Tablet} 3xD 1 tablet by mouth three times a day for 7 days [facility] (ACYCLOVIR) 400 MG TABS 2018-07-05 00:00:00 2018-07-12 00: 00:00 No Rogerjeff Snow 1{Tablet} 3xD 1 tablet by mouth three times a day for 7 days [facility] DIBUCAINE (PERIANAL) (DIBUCAINE) 1 % OINT 2017-07 00:00:00 2019-08-18 00:00:00 No apply at night time daily [facility] (TERBINAFINE HCL) 250 MG TABS 2018-06-01 00:00:00 00:00:00 No Roger Snow 1{Tablet} 1xD one tablet By Mouth daily for 2 weeks [facility] (CLOTRIMAZOLE) 1 % CREA 2018-06-01 00:00:00 2018-06-15 00: 00:00 No Roger Snow apply Twice a Day to affected areas for 7 days [facility] Vital Signs Vital Name Observation Time Observation Value Comments Source Weight 2019-12-20 19:00:00 200 [lb_av] [facility] BMI (Body Mass Index) 2019-12-20 19:00:00 36.6 kg/m2 [facility] oxygen saturation, oximetry 2019-08-19 10:17:43 98 % [facility] blood pressure, diastolic 2019-08-19 10:17:43 89 mm[Hg] [facility] blood pressure, systolic 2019-08-19 10:17:43 137 mm[Hg] [facility] respiratory rate E&M 2019-08-19 10:17:43 18 /min [facility] pulse rate 2019-08-19 10:17:43 67 /min [facility] temperature site 2019-08-19 10:17:43 oral Lega [facility] temperature E&M 2019-08-19 10:17:43 98.1 [degF] [facility] weight E&M 2019-08-19 10:17:43 192.20 [lb_av] [facility] weight in kilograms E&M 2019-08-19 10:17:43 87.36 kg [facility] height in centimeters E&M 2019-08-19 10:17:43 165.10 cm [facility] blood pressure, diastolic 2019-08-18 14:54:35 68 mm[Hg] [facility] blood pressure, systolic 2019-08-18 14:54:35 115 mm[Hg] [facility] oxygen saturation, oximetry 2019-08-18 14:54:35 98 % [facility] pulse rate 2019-08-18 14:54:35 69 /min [facility] 2019-08-18 14:54:35 98.3 [degF] Legac [facility] weight E&M 2019-08-18 14:54:35 191.25 [lb_av] [facility] weight in kilograms E&M 2019-08-18 14:54:35 86.93 kg [facility] temperature site 2019-08-18 14:54:35 oral Lega [facility] height in centimeters E&M 2019-08-18 14:54:35 165.10 cm [facility] oxygen saturation, oximetry 2019-03-03 14:00:17 99 % [facility] blood pressure, diastolic 2019-03-03 14:00:17 80 mm[Hg] [facility] blood pressure, systolic 2019-03-03 14:00:17 130 mm[Hg] [facility] pulse rate 2019-03-03 14:00:17 71 /min [facility] 2019-03-03 14:00:17 oral Lega cy [facility] temperature E&M 2019-03-03 14:00:17 98.1 [degF] [facility] weight E&M 2019-03-03 14:00:17 202.20 [lb_av] [facility] weight in kilograms E&M 2019-03-03 14:00:17 91.91 kg [facility] height in centimeters E&M 2019-03-03 14:00:17 165.10 cm [facility] oxygen saturation, oximetry 2019-01-17 13:12:54 98 % [facility] blood pressure, diastolic 2019-01-17 13:12:54 76 mm[Hg] [facility] blood pressure, systolic 2019-01-17 13:12:54 132 mm[Hg] [facility] respiratory rate E&M 2019-01-17 13:12:54 18 /min [facility] pulse rate 2019-01-17 13:12:54 76 /[facility] 2019-01-17 13:12:54 98.4 [degF] [facility] temperature site 2019-01-17 13:12:54 oral Lega [facility] weight E&M 2019-01-17 13:12:54 204.13 [lb_av] [facility] weight in kilograms E&M 2019-01-17 13:12:54 92.79 kg [facility] height in centimeters E&M 2019-01-17 13:12:54 165.10 cm [facility] height in centimeters E&M 2018-12-22 14:05:40 165.10 cm [facility] oxygen saturation, oximetry 2018-12-22 13:40:18 97 % [facility] blood pressure, diastolic 2018-12-22 13:40:18 84 mm[Hg] [facility] blood pressure, systolic 2018-12-22 13:40:18 142 mm[Hg] [facility] respiratory rate E&M 2018-12-22 13:40:18 17 /min [facility] pulse rate 2018-12-22 13:40:18 70 /min [facility] 2018-12-22 13:40:18 oral Lega [facility] temperature E&M 2018-12-22 13:40:18 98.5 [degF] Legac [facility] weight E&M 2018-12-22 13:40:18 205 [lb_av] [facility] in [facility] E&M 2018-12-22 13:40:18 93.18 kg [facility] height in centimeters E&M 2018-12-22 13:40:18 165.10 cm [facility] oxygen saturation, oximetry 2018-08-12 11:49:38 98 % [facility] blood pressure, diastolic 2018-08-12 11:49:38 73 mm[Hg] [facility] blood pressure, systolic 2018-08-12 11:49:38 117 mm[Hg] [facility] respiratory rate E&M 2018-08-12 11:49:38 16 /min [facility] pulse rate 2018-08-12 11:49:38 64 /min [facility] 2018-08-12 11:49:38 oral Lega [facility] temperature E&M 2018-08-12 11:49:38 97.9 [degF] [facility] weight E&M 2018-08-12 11:49:38 205 [lb_av] [facility] weight in kilograms E&M 2018-08-12 11:49:38 93.18 kg [facility] height in centimeters E&M 2018-08-12 11:49:38 165.10 cm [facility] oxygen saturation, oximetry 2018-06-01 16:32:40 97 % [facility] blood pressure, diastolic 2018-06-01 16:32:40 87 mm[Hg] [facility] blood pressure, systolic 2018-06-01 16:32:40 137 mm[Hg] [facility] respiratory rate E&M 2018-06-01 16:32:40 17 /min [facility] pulse rate 2018-06-01 16:32:40 78 /min [facility] temperature site 2018-06-01 16:32:40 oral Lega [facility] temperature E&M 2018-06-01 16:32:40 98.7 [degF] [facility] weight E&M 2018-06-01 16:32:40 200.20 [lb_av] [facility] weight in kilograms E&M 2018-06-01 16:32:40 91 kg [facility] height in centimeters E&M 2018-06-01 16:32:40 165.10 cm [facility] oxygen saturation, oximetry 2018-04-05 15:22:21 98 % [facility] blood pressure, diastolic 2018-04-05 15:22:21 85 mm[Hg] [facility] blood pressure, systolic 2018-04-05 15:22:21 126 mm[Hg] [facility] respiratory rate E&M 2018-04-05 15:22:21 18 /min [facility] pulse rate 2018-04-05 15:22:21 99 /min [facility] 2018-04-05 15:22:21 oral Lega cy [facility] temperature E&M 2018-04-05 15:22:21 98.4 [degF] Legac y [facility] weight E&M 2018-04-05 15:22:21 196 [lb_av] [facility] weight in kilograms E&M 2018-04-05 15:22:21 89.09 kg [facility] height in centimeters E&M 2018-04-05 15:22:21 165.10 cm [facility] Procedures Procedure Date / Time Performed Performing Clinician Sour e Health Education/Supportive Counseling 2019-08-19 11:14:10 Alfie dacosta [facility] Rapid Flu - In House 2019-08-19 10:43:29 Valerie Casiano [facility] Rapid Strep - In House 2019-08-19 10:43:29 Valerie Casiano [facility] Venipuncture 2019-08-18 15:19:11 Sh[facility] Ven[facility] 2019-03-03 14:24:32 Sh[facility] HEMOGLOBIN A1C - In House 2018-08-12 12:28:54 Roger Snow [facility] Health Education/Supportive Counseling 2017-07-01 12:56:51 Alfie dacosta [facility] Health Education/Supportive Counseling 2017-07-01 12:08:07 Alfie dacosta [facility] Plan of Care Planned Activity Planned Date Details Comments Source [facility] Encounters Start Date/Time End Date/Time Encounter Type Admission Type Attendi [facility] Care Department Encounter ID Source 2019-12-21 00:00:00 2019-12-21 00:00:00 Office Visit A Sharan fisher [facility] Encounter/[id number] [facility] 2019-12-21 00:00:00 2019-12-21 00:00:00 Office Visit Hillary Marie fall Amalia M [facility] Encount er/[id number] [facility] 2019-12-20 18:36:00 2019-12-20 18:36:00 Registered Emergency Room 1 KRISTIE TARIQ [facility] [id number] I [facility] 2019-12-20 00:00:00 2019-12-20 00:00:00 Office Visit Sharan Blanton [facility] Encounter/[id number] [facility] 2019-10-17 00:00:00 2019-10-17 00:00:00 Office Visit Alfie Crockett, Lucy Snow, Neyda Tan [facility] Encounter/[id number] [facility] 2019-08-24 00:00:00 2019-08-24 00:00:00 Office Visit Janessa Naranjo Cindy [facility] Encounter/[id number] [facility] 2019-08-19 00:00:00 2019-08-19 00:00:00 Office Visit Arian Blake [facility] Encounter/[id number] [facility] 2019-08-19 00:00:00 2019-08-19 00:00:00 Office Visit Alfie dacosta, [facility] Arian Blake [facility] Encounter/[id number] [facility] 2019-08-19 00:00:00 2019-08-19 00:00:00 Office Visit Valerie Garcia Charese [facility] Adult Medicine Encounter/[id number] [facility] 2019-08-18 00:00:00 2019-08-18 00:00:00 Office Visit Sharan Blanton [facility] Encounter/[id number] [facility] 2019-08-18 00:00:00 2019-08-18 00:00:00 Office Visit Sharan Davenport Charese Banh, Jeannie Surugui, Diana G [facility] Encounter/[id number] [facility] 2019-08-16 00:00:00 2019-08-16 00:00:00 Office Visit Kolby Barber [facility] Encounter/1 [id number] [facility] 2019-07-22 00:00:00 2019-07-22 00:00:00 Office Visit Alfie Crockett, Lucy Mcdonnell, Ni Richardson Erick [facility] Contact Center Encounter/[id number] [facility] 2019-04-13 00:00:00 2019-04-13 00:00:00 Office Visit Melinda Dahl [facility] Adult Medicine Encounter/[id number] [facility] 2019-04-13 00:00:00 2019-04-13 00:00:00 Office Visit Sharan Davenport Cindy Contreras Luna, Leonardo [facility] Encounter/[id number] [facility] 2019-04-08 00:00:00 2019-04-08 00:00:00 Office Visit Sharan Blanton [facility] Encounter/[id number] [facility] 2019-03-08 00:00:00 2019-03-08 00:00:00 Office Visit Sharan Blanton [facility] Encounter/[id number] [facility] 2019-03-03 00:00:00 2019-03-03 00:00:00 Office Visit Sharan Davenport Leonardo [facility] Encounter/[id number] [facility] 2019-01-24 00:00:00 2019-01-24 00:00:00 Office Visit Naveen Key [facility] Encounter/[id number] [facility] 2019-01-17 00:00:00 2019-01-17 00:00:00 Office Visit Kamron Kat [facility] Encounter/[id number] [facility] 2019-01-17 00:00:00 2019-01-17 00:00:00 Office Visit E Kamron garcia Adalia S [facility] Encounter/[id number] [facility] 2018-12-22 00:00:00 2018-12-22 00:00:00 Office Visit Kamron Kat [facility] Encounter/[id number] [facility] 2018-12-22 00:00:00 2018-12-22 00:00:00 Office Visit Kamron Kat [facility] Encounter/[id number] [facility] 2018-12-22 00:00:00 2018-12-22 00:00:00 Office Visit Kamron Kat [facility] Encounter/[id number] [facility] 2018-12-22 00:00:00 2018-12-22 00:00:00 Office Visit Kamron Kat [facility] Encounter/[id number] [facility] 2018-12-22 00:00:00 2018-12-22 00:00:00 Office Visit Kamron Kat [facility] Encounter/[id number] [facility] 2018-12-22 00:00:00 2018-12-22 00:00:00 Office Visit Kamron Cheney Maria [facility] Encounter/[id number] [facility] 2018-12-21 00:00:00 2018-12-21 00:00:00 Office Visit Marie Dominguez Laura [facility] Encounter/[id number] [facility] 2018-12-17 00:00:00 2018-12-17 00:00:00 Office Visit Marie Dominguez Luis [facility] Contact Center Encounter/[id number] [facility] 2018-12-16 00:00:00 2018-12-16 00:00:00 Office Visit Gianfranco Crockett, Bessy Desiree Hassan [facility] Center Encounter/[id number] [facility] 2018-08-12 00:00:00 2018-08-12 00:00:00 Office Visit Sergio Marquez [facility] Encounter/[id number] [facility] 2018-08-12 00:00:00 2018-08-12 00:00:00 Office Visit Roger Alfaro Umer Jack, Myesha Melendez, Rebeca [facility] Encounter/[id number] [facility] 2018-08-02 00:00:00 2018-08-02 00:00:00 Office Visit Sergio Marquez [facility] Encounter/[id number] [facility] 2018-08-02 00:00:00 2018-08-02 00:00:00 Office Visit Lucy Guzman Lindsey Hashmi, Umer Aviles, Jadira Osorio Marquez, Laura [facility] Encounter/[id number] [facility] 2018-07-06 00:00:00 2018-07-06 00:00:00 Office Visit Lucy Guzman Lindsey [facility] Encounter/[id number] [facility] 2018-07-05 00:00:00 2018-07-05 00:00:00 Office Visit Sergio Marquez [facility] Encounter/[id number] [facility] 2018-07-05 00:00:00 2018-07-05 00:00:00 Office Visit Sergio Marquez [facility] Encounter/[id number] [facility] 2018-06-07 00:00:2018-06-07 00:00:00 Office Visit Sergio Marquez [facility] Encounter/[id number] [facility] 2018-06-01 00:00:00 2018-06-01 00:00:00 Office Visit Alma Sergio [facility] Encounter/[id number] [facility] 2018-06-01 00:00:00 2018-06-01 00:00:00 Office Visit Alma Sergio [facility] Encounter/[id number] [facility] 2018-06-01 00:00:00 2018-06-01 00:00:00 Office Visit Alma Sergio [facility] Encounter/[id number] [facility] 2018-06-01 00:00:00 2018-06-01 00:00:00 Office Visit Alma Sergio [facility] Encounter/[id number] [facility] 2018-06-01 00:00:00 2018-06-01 00:00:00 Office Visit Roger Alfaro, Corazon Marquez Sergio [facility] Encounter/[id number] [facility] 2018-04-05 00:00:00 2018-04-05 00:00:00 Office Visit Matilde Long [facility] Encounter/[id number] [facility] 2018-04-05 00:00:00 2018-04-05 00:00:00 Office Visit Matilde Long [facility] Encounter/[id number] [facility] 2018-04-05 00:00:00 2018-04-05 00:00:00 Office Visit Matilde Long [facility] Encounter/[id number] [facility] 2018-04-05 00:00:00 2018-04-05 00:00:00 Office Visit Ginette Reyes Jacqueline [place], [place] [facility] Encounter/[id number] [facility] 2017-07-01 00:00:00 2017-07-01 00:00:00 Office Visit Mirlande [facility] Gordon Negrete [facility] Encounter/[id number] [facility] 2017-07-01 00:00:00 2017-07-01 00:00:00 Office Visit Alfie dacosta [facility] Dorian Escoto [facility] Encounter/[id number] [facility] 2017-07-01 00:00:00 2017-07-01 00:00:00 Office Visit Gordon Ritchie [facility] Encounter/[id number] [facility] 2017-07-01 00:00:00 2017-07-01 00:00:00 Office Visit Alfie dacosta [facility] Gordon Negrete [facility] Encounter/[id number] [facility] Results Test Description Test Time Test Comments Results Result Comments Source KNEE 3VW LT - HOPD 2019-12-20 19:31:00 [place] [address] 5 Patient Name: BRIDGER CAMARA III MR #: [id number] : 1990 Age/Sex: 29/M Req #: [id number] Adm Physician: Ordered by: KRISTIE TARIQ MD Report #: [id number] Location: [facility] Room/Bed: Procedure: [id number] HOPD/KNEE 3VW LT - HOPD Exam Date: 12/20/19 Exam Time: 1915 REPORT STATUS: Signed Exam: Left knee 3 views History: Knee pain Comparison: None. Findings: No fracture or malalignment. Joint spaces preserved. Bone island in the medial tibial plateau. Impression: No acute osseous abnormality. Signed by: Dr. Nidia Sheffield M.D. on 12/20/2019 7:32 PM Dictated By: NIDIA SHEFFIELD MD 31 Transcribed By: MIKE on 12/20/191931 COPY TO: KRISTIE TARIQ MD HIV rapid test results 2019-08-19 11:13:12 Test Item HIV rapid test results (test code = 73485) negative [facility] virus [id number] 10:17:43* Test Item Value Reference Range Interpretation Comments influenza B virus antigen (test code = 67092) negative [facility] A [id number] 10:17:43* Test Item Value Reference Range Interpretation Comments influenza virus A antigen (test code = 3413) negative [facility], rapid strep method 2019-08-19 10:17:43* Test Item Value Reference Range Interpretation Comments Microbial identification kit, rapid strep method (test code = 60534-7) negative [facility]HIV[facility] (Chemiluminescent Microparticle Immuno Assay) 2019-08-18 15:27:00* Test Item Value Reference Range Interpretation Comments HIV-CMIA (Chemiluminescent Microparticle Immuno Assay) (test code = 454199) Non Reactive Non Reactive [facility] Centerrapid plasma reagin antibody, [id number] 15:27:00* Test Item Value Reference Range Interpretation Comments rapid plasma reagin antibody, serum (test code = 5291-0) Non Reactive Non Reactive [facility] Centerhemoglobin A1C, blood, as % of total adnfekbjsp2294-31-09 15:27:00* Test Item Value Reference Range Interpretation Comments hemoglobin A1C, blood, as % of total hemoglobin (test code = 4548-4) 5.5 % 4.8-5.6 [facility] CenterNeisseria gonorrhoeae DNA [id number] 15:27:00* Test Item Value Reference Range Interpretation Comments Neisseria gonorrhoeae DNA probe (test code = 07658-3) Negative Negative [facility] Centerchlamydia DNA [id number] 15:27:00* Test Item Value Reference Range Interpretation Comments chlamydia DNA probe (test code = 63251-9) Negative Negative [facility] Centeralanine aminotransferase (SGPT), szyic6581-65-05 15:27:00 * Test Item Value Reference Range Interpretation Comments alanine aminotransferase (SGPT), serum (test code = 1742-6) 62 1/L 0-44 H [facility] Centeraspartate aminotransferase (SGOT), [id number] 15:27:00* Test Item Value Reference Range Interpretation Comments aspartate aminotransferase (SGOT), serum (test code = 1920-8) 25 1/ L 0-40 [facility] Centeralkaline phosphatase, [id number] 15:27:00* Test Item Value Reference Range Interpretation Comments alkaline phosphatase, serum (test code = 1783-0) 58 1/L 39-11 7 [facility] Centerbilirubin, serum, [id number] 15:27:00* Test Item Value Reference Range Interpretation Comments bilirubin, serum, total (test code = 1975-2) 1.1 mg/dL 0.0-1.2 [facility] Centeralbumin/globulin ratio, lused3437-45-25 15:27:00* Test Item Value Reference Range Interpretation Comments albumin/globulin ratio, serum (test code = 1759-0) 2.2 1.2 -2.2 [facility] Healthglobulin, [id number] 15:27:00* Test Item Value Reference Range Interpretation Comments globulin, serum (test code = 2336-6) 2.5 1.5-4.5 [facility] Healthalbumin, frhxl6240-48-88 15:27:00* Test Item Value Reference Range Interpretation Comments albumin, serum (test code = 1751-7) 5.4 g/dL 4.1-5.2 H [facility] Centerprotein, total, [id number] 15:27:00* Test Item Value Reference Range Interpretation Comments protein, total, serum (test code = 2885-2) 7.9 g/dL 6.0-8.5 [facility] Centercalcium, [id number] 15:27:00* Test Item Value Reference Range Interpretation Comments calcium, serum (test code = 2000-8) 9.9 mg/dL 8.7-10.2 [facility] Centercarbon dioxide, venous [id number] 15:27:00* Test Item Value Reference Range Interpretation Comments carbon dioxide, venous blood (test code = 2027-1) 25 mmol/L 20-2 9 [facility] Healthchloride, [id number] 15:27:00* Test Item Value Reference Range Interpretation Comments chloride, serum (test code = 2075-0) 101 mmol/L 96-106 [facility] Healthpotassium, yldmy1688-28-74 15:27:00* Test Item Value Reference Range Interpretation Comments potassium, serum (test code = 2823-3) 4.0 mmol/L 3.5-5.2 [facility] Centersodium, vbhav8471-10-21 15:27:00* Test Item Value Reference Range Interpretation Comments sodium, serum (test code = 2951-2) 142 mmol/L 134-144 [facility] Centerurea nitrogen/creatinine ratio, hvucv0945-02-07 15:27:00 * Test Item Value Reference Range Interpretation Comments urea nitrogen/creatinine ratio, serum (test code = 3097-3) 14 9-20 [facility] HealtheGFR if Nejeruvp0754-88-96 15:27:00* Test Item Value Reference Range Interpretation Comments eGFR if (test code = 45900-4) 129 mL/min/((173/100 ).m2) >59 [facility] CenterEstimated Glomerular Filtration Rate (calc)2019-08-18 15:27:00* Test Item Value Reference Range Interpretation Comments Estimated Glomerular Filtration Rate (calc) (test code = 52697-6) 111 mL/min/((173/100).m2) >59 [facility] Centercreatinine, clyss5732-72-54 15:27:00* Test Item Value Reference Range Interpretation Comments creatinine, serum (test code = 2160-0) 0.94 mg/dL 0.76-1.27 [facility] Centerurea nitrogen, [id number] 15:27:00* Test Item Value Reference Range Interpretation Comments urea nitrogen, blood (test code = 3094-0) 13 mg/dL 6-20 [facility] Centerblood glucose, [id number] 15:27:00* Test Item Value Reference Range Interpretation Comments blood glucose, random (test code = 2339-0) 99 mg/dL 65-99 [facility] CenterHIV-CMIA (Chemiluminescent Microparticle Immuno Assay) 2019-04-08 14:57:00* Test Item Value Reference Range Interpretation Comments HIV-CMIA (Chemiluminescent Microparticle Immuno Assay) (test code = 757307) Non Reactive Non Reactive [facility] Centerrapid plasma reagin antibody, meuaf1534-18-46 14:57:00* Test Item Value Reference Range Interpretation Comments rapid plasma reagin antibody, serum (test code = 5291-0) Non Reactive Non Reactive [facility] CenterNeisseria gonorrhoeae DNA nmqsh3476-96-46 14:57:00* Test Item Value Reference Range Interpretation Comments Neisseria gonorrhoeae DNA probe (test code = 19578-2) Negative Negative [facility] Centerchlamydia DNA gddcz0835-50-22 14:57:00* Test Item Value Reference Range Interpretation Comments chlamydia DNA probe (test code = 07312-0) Negative Negative [facility] Centerhemoglobin A1C, blood, as % of total uxqxshoutu5444-00-47 11:49:38* Test Item Value Reference Range Interpretation Comments hemoglobin A1C, blood, as % of total hemoglobin (test code = 4548-4 ) 5.9 % [facility] CenterHIV-CMIA (Chemiluminescent Microparticle Immuno Assay) 2018-06-01 16:55:00* Test Item Value Reference Range Interpretation Comments HIV-CMIA (Chemiluminescent Microparticle Immuno Assay) (test code = 317365) Non Reactive Non Reactive [facility], [id number] 16:55:00* Test Item Value Reference Range Interpretation Comments rapid plasma reagin antibody, serum (test code = 5291-0) Non Reactive Non Reactive [facility] CenterNeisseria gonorrhoeae DNA gchge9091-63-72 16:55:00* Test Item Value Reference Range Interpretation Comments Neisseria gonorrhoeae DNA probe (test code = 16150-1) Negative Negative [facility] Centerchlamydia DNA bpxmz7714-70-20 16:55:00* Test Item Value Reference Range Interpretation Comments chlamydia DNA probe (test code = 08586-6) Negative Negative [facility] CenterHERPES SIMPLEX VIRUS TYPE 1 AB.IGG (PT; SER; QN; ) 2018-06-01 16:55:00* Test Item Value Reference Range Interpretation Comments HERPES SIMPLEX VIRUS TYPE 1 AB.IGG (PT; SER; QN; ) (te st code = 2432) <0.91 index 0.00-0.90 [facility] Centerrapid plasma reagin antibody, ckvfq1274-23-55 16:30:00* Test Item Value Reference Range Interpretation Comments rapid plasma reagin antibody, serum (test code = 5291-0) Non Reactive Non Reactive [facility] CenterHIV rapid test rlxbtyk2693-29-16 12:04:20* Test Item Value Reference Range Interpretation Comments HIV rapid test results (test code = 35272) negative [facility]
[2020-06-09] MEDS ORDERED: ACETAMINOPHEN 325 MG TAB ONE (21:43)
[2020-06-09] MEDS ORDERED: CEFTRIAXONE SOD 1 GM VIAL ONE (21:43)
[2020-06-09] MEDS ORDERED: KETOROLAC TROMETHAMINE 60 MG/2 ML VIAL ONE (21:43)
[2020-06-09] MEDS ORDERED: LIDOCAINE HCL 1% LOCAL INJ 20 ML VIAL ONE (21:44)
[2020-06-09] MEDS ORDERED: PREDNISONE20 MG PO (22:04)
[2020-06-09] MEDS ORDERED: CEFDINIR300 MG PO (22:04)
[2020-06-09] MEDS ORDERED: AZITHROMYCIN500 MG PO (22:04)
== END 2020-06-09 22:24 | disposition home or self-care (01) ==
LOC: FSED 21:15
DX: R50.9 Fever, unspecified (principal); N12 Tubulo-interstitial nephritis, not specified as acute or chronic; M54.5 Low back pain; R30.0 Dysuria
CPT/HCPCS: 81003; 87086; 87186; 87400; 99283; J0696; J1885; J2001

== ENCOUNTER 2020-07-18 15:37 | Emergency (ER) | payer SELFPAY ==
[~2020-07-18] VITALS: Ht 157.5 cm; Wt 86.2 kg
[~2020-07-18 15:37] MED LIST: AZITHROMYCIN500 MG PO; CEFDINIR300 MG PO; PREDNISONE20 MG PO
[2020-07-18] MEDS ORDERED: IBUPROFEN 600 MG TAB PO STA (16:10)
[2020-07-18] MEDS ORDERED: SODIUM CHLORIDE 0.9% 1000ML 1,000 ML IV STA (16:10)
[2020-07-18] MEDS ORDERED: CEFTRIAXONE SOD 1 GM VIAL IV ONE (16:15)
[2020-07-18] MEDS ORDERED: CEFTRIAXONE SOD 1 GM/NS 50 ML 50 ML IV ONE (16:30)
[2020-07-18] MEDS ORDERED: SODIUM CHLORIDE 0.9% 50ML 50 ML ONE (16:31)
[2020-07-18] MEDS ORDERED: IBUPROFEN 600 MG TAB ONE (16:31)
[2020-07-18] MEDS ORDERED: CEFTRIAXONE SOD 1 GM VIAL ONE (16:32)
[2020-07-18] MEDS ORDERED: SODIUM CHLORIDE 0.9% 1000ML 1,000 ML ONE (16:32)
[2020-07-18] MEDS ORDERED: AUGMENTIN 500-1 EACH PO (17:21)
== END 2020-07-18 17:54 | disposition home or self-care (01) ==
LOC: FSED 16:15
DX: R10.30 Lower abdominal pain, unspecified (principal); R50.9 Fever, unspecified; N39.0 Urinary tract infection, site not specified; R30.0 Dysuria
CPT/HCPCS: 74176; 99284; J0696; J7030